=== PATIENT | female | born 1960 | race Caucasian/White ===

== ENCOUNTER 2018-10-10 08:47 | Emergency (ER) | payer SELFPAY ==
[~2018-10-10] VITALS: Ht 160 cm; Wt 90.9 kg
[2018-10-10 08:48] VITALS: BP 138/85
[2018-10-10] MEDS ORDERED: ADVI200C5 PO (08:53)
[2018-10-10] MEDS ORDERED: CLEO150C PO (09:16)
== END 2018-10-10 09:19 | disposition home or self-care (01) ==
LOC: M ED 08:47
DX: K04.7 Periapical abscess without sinus (principal); Z88.0 Allergy status to penicillin

== ENCOUNTER → 2019-04-02 | Outpatient (REF) | payer MEDICAID ==
[~2019-04-02] MED LIST: ADVI200C5 PO; CLEO150C PO
[2019-04-02 13:22] LABS: INR 1.05; PROTHROMBIN TIME 13.4 SECONDS (11.8-14.0)
[2019-04-02 13:23] LABS: PARTIAL THROMBOPLASTIN TIME 36.8 SECONDS (25.0-38.4)
[2019-04-02 14:50] LABS: HEMATOCRIT 47.1 % (36.0-47.0); HEMOGLOBIN 15.6 g/dl (12.0-15.5); MEAN CORPUSCULAR HEMOGLOBIN 33.2 pg (27.0-33.0); MEAN CORPUSCULAR HGB CONC 33.1 g/dl (32.0-36.5); MEAN CORPUSCULAR VOLUME 100.2 fl (80.0-96.0); PLATELET COUNT, AUTOMATED 240 10^3/uL (150-450); WHITE BLOOD COUNT 9.5 10^3/uL (4.0-10.0)
[2019-04-02 15:04] LABS: ALBUMIN 4.2 GM/DL (3.2-5.2); ALT/SGPT 23 U/L (12-78); BILIRUBIN,TOTAL 0.4 MG/DL (0.2-1.0); BLOOD UREA NITROGEN 17 MG/DL (7-18); CALCIUM LEVEL 9.3 MG/DL (8.5-10.1); CARBON DIOXIDE LEVEL 25 MEQ/L (21-32); CHLORIDE LEVEL 108 MEQ/L (98-107); CREATININE FOR GFR 0.97 MG/DL (0.55-1.30); GLOMERULAR FILTRATION RATE > 60.0 (>51); GLUCOSE, FASTING 87 MG/DL (70-100); SODIUM LEVEL 142 MEQ/L (136-145); TOTAL PROTEIN 7.3 GM/DL (6.4-8.2)
[2019-04-02 16:05] LABS: HEMOGLOBIN A1c 5.6 %
== END ==
LOC: M SFHCPLAZ 09:18
PROVIDERS: ATTEND Family Medicine
DX: R73.03 Prediabetes (principal); D50.9 Iron deficiency anemia, unspecified; R23.8 Other skin changes

== ENCOUNTER → 2019-04-09 | Outpatient (REF) | payer MEDICAID ==
[2019-04-09 14:06] LABS: CHOLESTEROL RISK RATIO 4.617 (<5); FREE T4 1.03 NG/DL (0.76-1.46); THYROID STIMULATING HORMONE 2.6 uIU/ML (0.358-3.740)
== END ==
LOC: M SFHCPLAZ 10:21
PROVIDERS: ATTEND Family Medicine
DX: Z13.220 Encounter for screening for lipoid disorders (principal); Z83.49 Family history of other endocrine, nutritional and metabolic diseases

== ENCOUNTER → 2019-07-29 | Outpatient (CLI) | payer OTHER ==
--- NOTE | 2019-07-29 13:56 | REP ---
CT CHEST WITHOUT CONTRAST: Low-dose screening exam. HISTORY: Personal history of nicotine dependence. No comparison imaging. CT FINDINGS: There is a 4 mm right upper lobe nodule on page 17 of 83 in series 201 of today's study. There are several tiny 2-3 mm nodules noted in the right middle lobe and right upper lobe and left lower lobe. No larger pulmonary nodule is appreciated. Study is otherwise unremarkable. Minimal vascular calcification is noted. IMPRESSION: Lung RADS 1 negative exam. Repeat screening chest CT study recommended in 1 year. Electronically Signed by Girma Jaime MD 07/29/2019 05:18 P
== END ==
LOC: M RAD 10:21
PROVIDERS: ATTEND Family Medicine
DX: Z87.891 Personal history of nicotine dependence (principal); Z12.2 Encounter for screening for malignant neoplasm of respiratory organs

== ENCOUNTER 2019-08-11 07:40 | Day surgery (SDC) | payer OTHER ==
[~2019-08-11] VITALS: Ht 157.5 cm; Wt 98.0 kg
[~2019-08-11 07:40] MED LIST changes: +CYCL10TA PO; +GABA-845 PO; +IBUP80TA PO; +MELO15TA28 PO; +NS 1,000 ML IV ONE
[2019-08-11] MEDS ORDERED: PROPOFOL 200 MG/20 ML VIAL As Ordered ONE ×3 (08:05→08:48)
[2019-08-11] MEDS ORDERED: LIDOCAINE 2% INJ 100 MG/5 ML SDV (FOR ANES.) As Ordered ONE (08:07)
--- NOTE | 2019-08-11 09:05 | ROOR ---
Patient Name: Bronwyn Contreras Procedure Date: 08/11/2019 8:24 AM Date of : 1960 Age: 58 Room: [facility] Gender: Female Note Status: Finalized Procedure: Colonoscopy Indications: Screening for colorectal malignant neoplasm Providers: Josiah Duncan Jr, MD Referring MD: [facility] MANUELHessel Requesting Provider: Medicines: Propofol per Anesthesia Complications: No immediate complications. Procedure: Pre-Anesthesia Assessment: - Prior to the procedure, a History and Physical was performed, and patient medications and allergies were reviewed. The patient is competent. The risks and benefits of the procedure and the sedation options and risks were discussed with the patient. All questions were answered and informed consent was obtained. Patient identification and proposed procedure were verified by the physician and the nurse in the pre-procedure area and in the procedure room. Mental Status Examination: alert and oriented. Airway Examination: normal oropharyngeal airway and neck mobility. Respiratory Examination: clear to auscultation. CV Examination: normal. ASA Grade Assessment: II - A patient with mild systemic disease. After reviewing the risks and benefits, the patient was deemed in satisfactory condition to undergo the procedure. The anesthesia plan was to use moderate sedation / analgesia (conscious sedation). Immediately prior to administration of medications, the patient was re-assessed for adequacy to receive sedatives. The heart rate, respiratory rate, oxygen saturations, blood pressure, adequacy of pulmonary ventilation, and response to care were monitored throughout the procedure. The physical status of the patient was re-assessed after the procedure. The Colonoscope was introduced through the anus and advanced to the cecum, identified by appendiceal orifice and ileocecal valve. The colonoscopy was performed with moderate difficulty due to multiple diverticula in the colon. The quality of the bowel preparation was adequate. Findings: The rectum, recto-sigmoid colon, cecum, appendiceal orifice and ileocecal valve appeared normal. A medium polyp was found in the cecum. The polyp was hyperplastic. Biopsies were taken with a cold forceps for histology. Coagulation for destruction of remaining portion of lesion using bipolar probe was successful. Many small and large-mouthed diverticula were found in the sigmoid colon. A medium polyp was found in the sigmoid colon. The polyp was hyperplastic. Biopsies were taken with a cold forceps for histology. To close a defect after mucosal resection, one hemostatic clip was successfully placed. There was no bleeding at the end of the procedure. A small polyp was found in the transverse colon. The polyp was removed with a jumbo cold forceps. Resection and retrieval were complete. Impression: - The rectum, recto-sigmoid colon, cecum, appendiceal orifice and ileocecal valve are normal. - One medium polyp in the cecum. Biopsied. Treated with bipolar cautery. - Diverticulosis in the sigmoid colon. - One medium polyp in the sigmoid colon. Biopsied. Clip was placed. - One small polyp in the transverse colon, removed with a jumbo cold forceps. Resected and retrieved. Recommendation: - Discharge patient to home (ambulatory). - Repeat colonoscopy in 5-10 years for surveillance based on pathology results. Josiah Duncan MD Josiah Duncan Jr, MD 08/11/2019 9:04:38 AM Electronically signed by Josiah Duncan Jr, MD Number of Addenda: 0 Note Initiated On: 08/11/2019 8:24 AM Estimated Blood Loss: Estimated blood loss: none.
[2019-08-11 09:38] VITALS: BP 112/80
== END 2019-08-11 09:40 | disposition home or self-care (01) ==
LOC: M OPP 07:40
PROVIDERS: ATTEND Surgery
DX: Z12.11 Encounter for screening for malignant neoplasm of colon (principal); K63.5 Polyp of colon; F17.210 Nicotine dependence, cigarettes, uncomplicated; Z79.899 Other long term (current) drug therapy; Z88.0 Allergy status to penicillin; Z88.1 Allergy status to other antibiotic agents; Z88.5 Allergy status to narcotic agent

== ENCOUNTER → 2019-09-11 | Outpatient (CLI) | payer OTHER ==
[~2019-09-11] MED LIST changes: -NS 1,000 ML IV ONE
--- NOTE | 2019-09-12 03:39 | REP ---
Clinical: Pelvic pain. Technique: Transabdominal pelvic ultrasound followed by transvaginal examination for better evaluation of the endometrium and adnexa. Findings: The bladder is collapsed. Transvaginal examination best demonstrates heterogeneous anteverted uterus measuring 8.8 x 4.0 x 4.8 cm. Endometrial complex measures up to 6 mm thickness without discrete uterine or endometrial abnormality identified. Bilateral ovaries are not visualized. No pelvic fluid or adnexal mass lesion. Impression: Heterogeneous uterus. Minimally thickened endometrial complex. No discrete abnormality identified.
== END ==
LOC: M WHC 09:28
PROVIDERS: ATTEND Nurse Practitioner Family
DX: R10.2 Pelvic and perineal pain (principal)

== ENCOUNTER → 2019-10-01 | Outpatient (CLI) | payer OTHER ==
--- NOTE | 2019-10-01 15:49 | REPMRS ---
Patient History The patient states she had a clinical breast exam in June 2019. Patient is postmenopausal. Family history of breast cancer in maternal grandmother, breast cancer in maternal aunt. Digital Woman Screen Mammo: October 01, 2019 - Exam #: [id number] Bilateral CC and MLO view(s) were taken. Technologist: Sherrie Brody, Technologist No prior studies available for comparison. FINDINGS: There are scattered fibroglandular densities. There is no evidence of dominant mass, architectural distortion, or grouped microcalcification typical of malignancy. 3-D tomosynthesis shows no additional findings. Assessment: BI-RADS/ACR category 1 mammogram. Negative Mammogram. Recommendation Routine screening mammogram of both breasts in 1 year (for women over age 40). This patient's Lifetime Breast Cancer RIsk is estimated at 14.0 %. This mammogram was interpreted with the aid of an FDA-approved computer-aided dectection system. Electronically Signed By: Trevon Jaime MD 10/01/19 [id number]
== END ==
LOC: M WHC 13:56
PROVIDERS: ATTEND Family Medicine
DX: Z12.31 Encounter for screening mammogram for malignant neoplasm of breast (principal)

== ENCOUNTER → 2020-01-23 | Outpatient (CLI) | payer OTHER ==
[~2020-01-23] MED LIST changes: +CYCL-707 PO; -CYCL10TA PO; +GABA600T4 PO; +PAME10CA PO
--- NOTE | 2020-01-23 17:01 | REPPI ---
REASON FOR EXAM: Knee pain. Only four views were obtained. The lack of a sunrise view is unknown to me. This examination is incomplete due to the lack of a sunrise view. Four views of the left knee excluding a sunrise view shows tricompartmental marginal osteophytosis, which is mild. The compartments are symmetric and well maintained. There is no acute fracture, dislocation, or subluxation. IMPRESSION: Findings and exam limitations as described above. I would suggest bringing the patient back and obtaining a sunrise view. Electronically Signed by Franklin Gomez DO 01/23/2020 05:13 P
== END ==
LOC: M PLALAB 10:52
PROVIDERS: ATTEND Family Medicine
DX: M79.89 Other specified soft tissue disorders (principal)

== ENCOUNTER → 2020-01-23 | Outpatient (REF) | payer OTHER ==
[2020-01-23 14:27] LABS: BLOOD UREA NITROGEN 10 MG/DL (7-18); CALCIUM LEVEL 9.2 MG/DL (8.5-10.1); CARBON DIOXIDE LEVEL 27 MEQ/L (21-32); CHLORIDE LEVEL 108 MEQ/L (98-107); CREATININE FOR GFR 0.87 MG/DL (0.55-1.30); GLOMERULAR FILTRATION RATE > 60.0 (>51); GLUCOSE, FASTING 91 MG/DL (70-100); NT-PRO BNP 45 PG/ML (<125); POTASSIUM SERUM 4.5 MEQ/L (3.5-5.1); SODIUM LEVEL 140 MEQ/L (136-145)
== END ==
LOC: M SFHCPLAZ 10:43
PROVIDERS: ATTEND Family Medicine
DX: M79.89 Other specified soft tissue disorders (principal)

== ENCOUNTER → 2020-03-04 | Outpatient (CLI) | payer OTHER, MEDICAID ==
[~2020-03-04] MED LIST changes: +CYCL5TAB PO; +TYLETAB14 PO
== END ==
LOC: M LABSMTC 11:31
PROVIDERS: ATTEND Anesthesiology
DX: Z01.818 Encounter for other preprocedural examination (principal); Z11.59 Encounter for screening for other viral diseases
CPT/HCPCS: C9803; U0002

== ENCOUNTER 2020-03-08 07:29 | Day surgery (SDC) | payer OTHER ==
[~2020-03-08] VITALS: Ht 160 cm; Wt 102.1 kg
[~2020-03-08 07:29] MED LIST changes: -CYCL5TAB PO; +LR 1,000 ML IV ONE; -TYLETAB14 PO
[2020-03-08 07:53] LABS: HEMATOCRIT 44.9 % (36.0-47.0); HEMOGLOBIN 15.4 g/dl (12.0-15.5); MEAN CORPUSCULAR HEMOGLOBIN 35.6 pg (27.0-33.0); MEAN CORPUSCULAR HGB CONC 34.3 g/dl (32.0-36.5); MEAN CORPUSCULAR VOLUME 103.7 fl (80.0-96.0); PLATELET COUNT, AUTOMATED 252 10^3/uL (150-450); RED BLOOD COUNT 4.33 10^6/uL (4.00-5.40); WHITE BLOOD COUNT 9.3 10^3/uL (4.0-10.0)
[2020-03-08] MEDS ORDERED: CYCL5TAB PO (07:58)
[2020-03-08] MEDS ORDERED: TYLETAB14 PO (07:58)
[2020-03-08] MEDS ORDERED: GABA-845 PO (07:58)
[2020-03-08] MEDS ORDERED: LIDOCAINE 2% 100MG/5ML SDV (FOR ANES.) As Ordered ONE (08:04)
[2020-03-08] MEDS ORDERED: propofoL 200 MG/20 ML VIAL As Ordered ONE (08:04)
[2020-03-08] MEDS ORDERED: dexameTHASONE 4 MG/ML 1ML VIAL (J1100 PER 1MG) As Ordered ONE (08:04)
[2020-03-08] MEDS ORDERED: KETOROLAC 60MG 2ML VIAL As Ordered ONE (08:04)
[2020-03-08] MEDS ORDERED: ONDANSETRON 4MG/2ML VIAL As Ordered ONE (08:04)
[2020-03-08] MEDS ORDERED: fentaNYL 100 MCG/2 ML INJECTION (J3010) As Ordered ONE (08:05)
[2020-03-08] MEDS ORDERED: MIDAZOLAM INJ 2MG/2ML VIAL (J2250 PER 1MG) As Ordered ONE (08:05)
[2020-03-08] MEDS ORDERED: LIDOCAINE 1% SDV 30ML VIAL As Ordered ONE (08:26)
[2020-03-08] MEDS ORDERED: METOCLOPRAMIDE INJ 10MG/2ML VIAL (J2765 PER 1) As Ordered ONE (09:02)
--- NOTE | 2020-03-08 09:31 | ROOPDOC ---
[facility] Report Of Operation Report of Operation DATE OF PROCEDURE: 03/08/20 PREPROCEDURE DIAGNOSES: Vaginal wall cysts. POSTPROCEDURE DIAGNOSES: Vaginal wall cyst. PROCEDURE:. Exam under anesthesia and removal of vaginal cyst. SURGEON: Mami Desai MD METAPHYSICIAN:. None ANESTHESIA: Laryngeal mask airway. ESTIMATED BLOOD LOSS: Approximately 5 mL mL. COMPLICATIONS: None. SPECIMEN: Vaginal cyst DESCRIPTION OF PROCEDURE: After informed consent was obtained and written consent was reviewed, the patient brought to the operating room where she was placed under general anesthesia. The patient was then placed in lithotomy position, was prepped and draped in normal sterile fashion. A timeout was then performed identifying the patient, procedure be performed as well as drug allergies. There was approximately 3 cm broad base vaginal cysts at the introit us. This area was infused with 1% lidocaine. The cyst was excised using a scalpel. The area was then closed with 3-0 Vicryl. Surgical sites were hemostatic. The patient was then taken out of lithotomy position, was awakened general anesthesia and taken recovery in stable condition. Counts correct. MAMI DESAI MD. Mar 08, 2020 09:31
[2020-03-08] MEDS ORDERED: fentaNYL 100 MCG/2 ML INJECTION (J3010) IV PRN (09:45)
[2020-03-08] MEDS ORDERED: HYDROMORPHONE HCL 0.5 MG/ 0.5 ML SYRINGE (J1170 PER 1) IV PRN (09:45)
[2020-03-08] MEDS ORDERED: ONDANSETRON 4MG/2ML VIAL IV PRN (09:45)
[2020-03-08] MEDS ORDERED: LR 1,000 ML IV SCH (09:45)
[2020-03-08] MEDS ORDERED: oxyCODONE 5MG TAB PO PRN (09:45)
[2020-03-08 10:10] VITALS: BP 135/90
== END 2020-03-08 10:40 | disposition home or self-care (01) ==
LOC: M SDC 07:29
PROVIDERS: ATTEND Obstetrics & Gynecology
DX: N89.8 Other specified noninflammatory disorders of vagina (principal); K21.9 Gastro-esophageal reflux disease without esophagitis; J44.9 Chronic obstructive pulmonary disease, unspecified; F41.9 Anxiety disorder, unspecified; Z79.899 Other long term (current) drug therapy; Z88.5 Allergy status to narcotic agent; Z91.013 Allergy to seafood; Z88.8 Allergy status to other drugs, medicaments and biological substances
CPT/HCPCS: 36415; 57135; 85027; 86850; 86900; 86901; 88305; J1100; J1885; J2250; J2405; J2765; J3010

== ENCOUNTER → 2020-09-23 | Outpatient (CLI) | payer OTHER ==
[~2020-09-23] MED LIST changes: +CYCL5TAB PO; +DOCU100C17 PO; -LR 1,000 ML IV ONE; +MM S100C PO; +TYLETAB14 PO
[2020-09-23 14:30] LABS: BASO % 0.3 % (0.0-1.0); EOS # 0.1 10^3/uL (0.0-0.5); HEMOGLOBIN 14.3 g/dl (12.0-15.5); LYMPH # 3.3 10^3/uL (1.5-5.0); LYMPH % 32.9 % (24.0-44.0); MEAN CORPUSCULAR HEMOGLOBIN 34.4 pg (27.0-33.0); MONO # 0.7 10^3/uL (0.0-0.8); MONO % 6.7 % (0.0-5.0); NEUTROPHILS # 5.8 10^3/uL (1.5-8.5); NEUTROPHILS % 58.8 % (36.0-66.0); PLATELET COUNT, AUTOMATED 239 10^3/uL (150-450); RED BLOOD COUNT 4.16 10^6/uL (4.00-5.40); WHITE BLOOD COUNT 9.9 10^3/uL (4.0-10.0)
[2020-09-23 14:40] LABS: INR 0.94; PROTHROMBIN TIME 12.8 SECONDS (12.5-14.3)
[2020-09-23 15:02] LABS: ALBUMIN 4.2 GM/DL (3.2-5.2); ALT/SGPT 29 U/L (12-78); BILIRUBIN,TOTAL 0.3 MG/DL (0.2-1.0); BLOOD UREA NITROGEN 17 MG/DL (7-18); CALCIUM LEVEL 9.7 MG/DL (8.5-10.1); CARBON DIOXIDE LEVEL 28 MEQ/L (21-32); CHLORIDE LEVEL 106 MEQ/L (98-107); CREATININE FOR GFR 0.86 MG/DL (0.55-1.30); GLOMERULAR FILTRATION RATE > 60.0 (>51); GLUCOSE, FASTING 91 MG/DL (70-100); POTASSIUM SERUM 4.6 MEQ/L (3.5-5.1); SODIUM LEVEL 141 MEQ/L (136-145)
[2020-09-23 15:03] LABS: ERYTHROCYTE SEDIMENTATION RATE 21 mm/hr (0-30)
--- NOTE | 2020-09-24 03:10 | REP ---
INDICATION: RT HIP OSTEOARTHRITIS LAB 1ST EKG 2ND XRAY 3RD COMPARISON: None. TECHNIQUE: PA and lateral. FINDINGS: The mediastinum and cardiac silhouette are normal. The lung richard are clear and without acute consolidation, effusion, or pneumothorax. The skeletal structures are intact and normal. IMPRESSION: No acute cardiopulmonary process. <Electronically signed by Ovidio Benson > 09/24/20 [id number]
--- NOTE | 2020-09-24 12:11 | ECGEPIP ---
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 No prior ECG available for comparison at the time of interpretation. Electronically Signed on 09-24-2020 12:11:33 EST by Ari Lange
== END ==
LOC: M LAB 13:32
PROVIDERS: ATTEND Orthopaedic Surgery
DX: Z01.818 Encounter for other preprocedural examination (principal); M16.11 Unilateral primary osteoarthritis, right hip; R94.31 Abnormal electrocardiogram [ECG] [EKG]

== ENCOUNTER → 2020-09-26 | Outpatient (CLI) | payer OTHER | LOC: M LABSMTC 10:03 | PROVIDERS: ATTEND Anesthesiology | DX: Z01.812 Encounter for preprocedural laboratory examination (principal); Z20.822 Contact with and (suspected) exposure to COVID-19 ==

== ENCOUNTER 2020-10-01 06:19 | Inpatient (IN) | payer OTHER ==
--- NOTE | 2020-09-27 16:27 | HPE ---
HISTORY AND PHYSICAL DATE OF ANTICIPATED ADMISSION: 10/01/2020 ATTENDING PHYSICIAN: Dr. Sumit Avendano CHIEF COMPLAINT: Right hip pain and stiffness. HISTORY OF PRESENT ILLNESS: The patient is a 59-year-old female with progressively worsening right hip pain and stiffness. She failed to improve with conservative measures. She continues to have symptoms with weightbearing activities and activities of daily living. She has consented for an elective right total hip arthroplasty with Dr. Avendano for her continued symptoms. Medical optimization pending with her primary clinical care leader, Dr. Radford. CURRENT MEDICATIONS: 1. Acetaminophen with Codeine #4, 300/60 mg one tablet every 4 hours as needed for pain. 2. Gabapentin 600 mg three times a day. 3. [id number] mg daily. 4. Flexeril 5 mg daily. 5. Docusate 100 mg daily. MEDICATION ALLERGIES: No known drug allergies. CHRONIC MEDICAL CONDITIONS: Chronic pain. PAST SURGICAL HISTORY: section, tubal ligation, colonoscopy. SOCIAL HISTORY: The patient is a current smoker and smokes half a pack a day. She occasionally consumes alcohol. REVIEW OF SYSTEMS: The patient denies fever, chills, nausea, vomiting or diarrhea. She denies chest pain, shortness of breath, lightheadedness, dizziness, or headaches. She denies any recent upper respiratory or urinary tract infection symptoms. She denies any abdominal pain. She does continue to have right hip pain with weightbearing activities and activities of daily living. PHYSICAL EXAMINATION: GENERAL: Well nourished, well developed female in no apparent distress. She is alert and oriented and cooperative. Mood and affect are appropriate. VITAL SIGNS: Height 61.75 inches. Weight 231 pounds. Temperature 96.8, blood pressure 136/94, respirations 19, heart rate 89. NECK: Supple without lymphadenopathy. HEART: Regular rate and rhythm. LUNGS: Clear to auscultation bilaterally. Breathing is regular and nonlabored. ABDOMEN: Soft and nontender. Bowel sounds are present. MUSCULOSKELETAL: Right hip exhibits no gross abnormalities. There is tenderness to palpation about the groin. She has difficulties with any hip flexion. She does have fairly decent internal and external rotation but it does elicit quite a bit of pain. Strength in the right lower extremity is 4/5 secondary to pain. Calf is soft and nontender without evidence of DVT. She does have chronic numbness and tingling in that right lower extremity. Extremity is warm and well perfused. LABORATORY DATA: Chest x-ray: No acute cardiopulmonary process. Comprehensive metabolic profile: Fasting glucose 91, BUN 17, creatinine 0.86, GFR greater than 60, sodium 141, potassium 4.6, chloride 106, CO2 28, anion gap decreased at 7, calcium 9.7, AST 11, ALT 29, alkaline phosphatase 74, total bilirubin 0.3, total protein 7.0, albumin 4.2, albumin globulin ratio 1.5. Complete blood count: ESR 21, WBC 9.9, RBCs 4.16, hemoglobin 14.3, hematocrit 42, platelets 239. Prothrombin time 12.8, INR 0.94. IMPRESSION: Right hip osteoarthritis with x-rays notable for end stage degenerative changes. PLAN: The patient has consented for an elective right total hip arthroplasty with Dr. Avendano for her continued symptoms. Medical optimization pending with her primary clinical care leader Dr. Radford. The patient has taken her COVID test. She is using her Bactroban and Hibiclens as directed. She will follow her primary clinical care leader's recommendations on how to take her daily medications. She will be NPO after midnight the night prior to surgery and was instructed to take a medication the morning of with a small sip of water.
[~2020-10-01] VITALS: Ht 160 cm; Wt 103.4 kg
[2020-10-01] VITALS (8 sets, daily range): BP systolic 114–133; BP diastolic 67–76; O2SAT 100
--- OUTSIDE RECORDS SUMMARY | 2020-10-01 06:27 | CCD ---
Author Author [facility] Organization [facility] Address Unknown Phone Unavailable Care Team Providers Care Minilab Operator Name Role Phone Jamie Chung Unavailable PROBLEMS Type Condition ICD9-CM Code [id number] Code Onset Dates Condition S tatus W/U Status Risk SNOMED Code Notes Problem Family history of breast cancer Z80.3 Active confi rmed 316860900 Problem Primary osteoarthritis of right hip M16.11 Acti ve confirmed [id number] Problem Lumbago with sciatica, right side M54.41 Active confirmed 908953928 Problem Other chronic pain G89.29 Active confirmed 8 [id number] Problem Situational mixed anxiety and depressive disorder F43.23 Active confirmed 205900890 Problem Vaginal cyst N89.8 Active confirmed 0618827 5 ALLERGIES Allergen (clinical drug ingredient) Drug/Non Drug Allergy do cumented on EMR Reaction Allergy Type Onset Date Status codeine Codeine Sulfate(NDC Code:[address]-52) Nausea/Vomiting Dr ug Allergy Active aspirin Aspirin(ND Code:[address]-22) belly pain Drug Allergy Active ENCOUNTERS from 1960 to 2020-09-27 Encounter Location Date Provider Diagnosis [address] [id number] 08 Sep, 2020 Jamie Chung IMMUNIZATIONS Vaccine Route Administration Date Status Influenza (18 yrs & older) Flublok IM Intramuscular Jun 24, 2019 Administered Pneumococcal Adult 0.5mL (Pneumovax 23) IM Intramuscular Jun 24, 2019 Administered TDAP 0.5mL (Boostrix) IM Intramuscular Jun 24, 2019 Administe red SOCIAL HISTORY Tobacco Use: Social History Observation Description Date Details (start date - stop date) Current Smoker Sex Assigned At : Social History Observation Description Sex Assigned At Unknown Education: Question Answer Notes Level of Education: High School Audit Question Answer Notes Total Score: 1 Interpretation: Alcohol Education Language: Question Answer Notes Languages spoken: Upper Sorbian Anglican: Question Answer Notes Anglican 33 None Domestic Violence: Question Answer Notes Status: Sexual Hx: Question Answer Notes Had sex in the last 12 months (vaginal, oral, or anal)? No LMP: menopausal Have you ever had an STD? No Drug and Alcohol Question Answer Notes Total Score: 0 Interpretation: No problems reported Alcohol Screening: Question Answer Notes Did you have a drink containing alcohol in the past year? Ye s Points 1 Interpretation Negative How often did you have six or more drinks on one occas ion in the past year? Never (0 points) How many drinks did you have on a typica l day when you were drinking in the past year? 1 or 2 (0 points) How often did you have a drink containing alcohol in t he past year? Monthly or less (1 point) BMI Care Goal Follow-Up Question Answer Notes Above Normal BMI Follow-Up Giving encouragement to exercise Tobacco Use: Question Answer Notes Are you a: current smoker Patient counseled on the dangers of tobacco use and urged to quit: 09/03/2019 How many cigarettes a day do you smoke? 6-10 Are you interested in quitting? Not ready to quit Counseled the patient on smoking effects, education provided 09/03/2019 REASON FOR REFERRAL No Information VITAL SIGNS No information MEDICATIONS Medication SIG (Take, Route, Frequency, Duration) Notes Start Da te End Date Status Cyclobenzaprine HCl 5 MG 1 tablet as needed Orally th ree times daily as needed for 30 Active Tylenol with Codeine #4 A ctive Meloxicam 15 MG 1 tablet Orally Once a day for 30 Active Gabapentin 600 MG 1 capsule Orally three times daily for 30 days May, Active Ibuprofen 800 MG 1 tablet with food or milk a s needed Orally twice daily as needed for 28 day(s) Mar, Active Tylenol Arthritis Pain Ac tive PROCEDURES No Information RESULTS No Results REASON FOR VISIT pre-op MEDICAL (GENERAL) HISTORY Type Description Date Medical History ho of TOM Medical History IFG Medical History Myriad myrisk genetic test neg TC score 14.1% Surgical History 1989 Surgical History Tubal ligation 1990 Surgical History colonoscopy 07/2019 Hospitalization History childbirth Hospitalization History Surgical related Goals Section No Information Health Concerns No Information MEDICAL EQUIPMENT No Information MENTAL STATUS No Information FUNCTIONAL STATUS No Information ASSESSMENTS No Information PLAN OF TREATMENT Medication Medication Name Sig Start Date Stop Date Cyclobenzaprine HCl 5 MG 1 tablet as needed Orally th ree times daily as needed for 30 Next Appt Details Provider Name:Jamie Chung, 2020-09-28 01 :45:00 PM, [facility], [place], [address], Insurance Providers Payer Name Payer Address Payer Phone Insured Name Patient Relati onship to Insured Coverage Start Date Coverage End Date [facility] [address] [facility] [id number] TOYA CONTRERAS self
--- OUTSIDE RECORDS SUMMARY | 2020-10-01 06:28 | CCD | Continuity of Care Document ---
Author Author [facility] Organization Unknown Address [address] [address] Phone [phone] Care Team Providers Care Harvesting Supervisor Name Role Phone Jamie Chung [phone] Problems Description No Information Available Social History Type Date Description Comments Sex Unknown ETOH Use Occasionally consumes alcohol Tobacco Use Start: Unknown Patient is a current smoker, smo kes every day 1/2 pack Smoking Status Reviewed: 04/20/20 Patient is a current smoker, smokes every day 1/2 pack Allergies, Adverse Reactions, Alerts Active Allergies Reaction Severity Comments Date NKDA 01/07/2020 Inactive Allergies Codeine 07/03/2019 Medications Active Medications SIG Qnty Indications Ordering Provide r Date Dok 100mg Capsules take one capsule by mouth once daily or twice daily for constipation 60caps Arsalan Duron MD 06/10/2020 Acetaminophen-Codeine #4 300-60mg Tablets 1 tab every 4 hours prn/pain 180tabs M16.11 Arsalan Duron MD 04/20/2020 Gabapentin 600mg Tablets 1 by mouth three times a day 90tabs Arsalan Duron MD 11/18/2019 Meloxicam 15mg Tablets 1 by mouth every day with food or milk 30tabs Arsalan Duron MD 2018 Cyclobenzaprine HCL 5mg Tablets one half to one tablet by mouth three times a day as needed spasm 90tabs Arsalan Duron MD History Medications Docusate Sodium 100mg Capsules 1 cap by mouth daily or twice a day for constipation 60caps Terrancea jeffrey Duron MD 04/20/2020 - 06/10/2020 Immunizations Description No Information Available Vital Signs Date Vital Result Comment 07/20/2020 4:09pm Body Temperature 97.5 F Height 63 inches 5'3" Weight 220.00 lb BMI (Body Mass Index) 39.0 kg/m2 06/22/2020 11:24am Body Temperature 97.1 F Height 63 inches 5'3" Weight 232.00 lb BMI (Body Mass Index) 41.1 kg/m2 Results Test Acquired Date Facility Test Result H/L Range Note Xray 09/10/2020 [facility] nter (315)- - Chest x-ray <pending> Order 09/10/2020 [facility] nter EKG <pending> Procedures Date Code Description Status 07/20/2020 06622 X-Ray Pelvis Ap Only 1-2 Views C ompleted 06/22/2020 48913 X-Ray Hip Unilateral With Pelvis 2-3 Views Completed Medical Devices Description No Information Available Encounters Type Date Location Provider Dx Diagnosis Office Visit 07/20/2020 4:00p Camdendamari Avendano MD M16.11 Unilateral primary osteoarthritis, right hip Office Visit 06/22/2020 11:15a ASHANTI Mauricio M47.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 w/o myelopathy or radiculopathy, lumbosacr region M51.37 Other intervertebral disc de generation, lumbosacral region M51.27 Other intervertebral disc di splacement, lumbosacral region M48.061 Spinal stenosis, lumbar juan j on without neurogenic virgil M43.16 Spondylolisthesis, lumbar re gion M41.26 Other idiopathic scoliosis, lumbar region M16.0 Bilateral primary osteoarthr itis of hip Office Visit 04/20/2020 2:45p [place] Tay M47.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 w/o myelopathy or radiculopathy, lumbosacr region M51.37 Other intervertebral disc de generation, lumbosacral region M51.27 Other intervertebral disc di splacement, lumbosacral region M48.061 Spinal stenosis, lumbar juan j on without neurogenic virgil M43.16 Spondylolisthesis, lumbar re gion M41.26 Other idiopathic scoliosis, lumbar region M16.0 Bilateral primary osteoarthr itis of hip Assessments Date Code Description Provider 07/20/2020 M16.11 Unilateral primary osteoarthriti s, right hip Sumit Avendano MD 06/22/2020 M47.817 Spondylosis without myelopathy or radiculopathy, lumbosacral region Casayumiko Christinana, PA 06/22/2020 M51.37 Other intervertebral disc degene ration, lumbosacral region Casayumiko Christinana, PA 06/22/2020 M51.27 Other intervertebral disc displa cement, lumbosacral region Casayumiko Christinana, PA 06/22/2020 M48.061 Spinal stenosis, lum bar region without neurogenic claudication Casayumiko Christinana, PA 06/22/2020 M43.16 Spondylolisthesis, lumbar region Casayumiko Christinana, PA 06/22/2020 M41.26 Other idiopathic scoliosis, lumb ar region Casa Christinana, PA 06/22/2020 M16.0 Bilateral primary osteoarthritis of hip Casayumiko Christinarubi PA 04/20/2020 M47.817 Spondylosis without myelopathy or radiculopathy, lumbosacral region Casayumiko Christinana, PA 04/20/2020 M51.37 Other intervertebral disc degene ration, lumbosacral region Casayumiko Christinana, PA 04/20/2020 M51.27 Other intervertebral disc displa cement, lumbosacral region Casa Christinana, PA 04/20/2020 M48.061 Spinal stenosis, lum bar region without neurogenic claudication Casayumiko Christinana, PA 04/20/2020 M43.16 Spondylolisthesis, lumbar region Casayumiko Christinana, PA 04/20/2020 M41.26 Other idiopathic scoliosis, lumb ar region Casayumiko Christinana, PA 04/20/2020 M16.0 Bilateral primary osteoarthritis of hip Casa M ASHANTI Garibay Plan of Treatment 07/20/2020 - Sumit Avendano MD* M16.11 Unilateral primary osteoarthritis, right hip* New Orders:* Surgery, Ordered: 07/20/20 * Follow up:* post op Functional Status Description No Information Available Mental Status Description No Information Available Referrals Description No Information Available
--- OUTSIDE RECORDS SUMMARY | 2020-10-01 06:28 | CCD | Continuity of Care Document ---
Author Author Bronwyn WIGGINS MD Organization Unknown Address [address] [place] [address], [address] [place] [address] Phone [phone] Care Team Providers Care Interventional Radiology Tech Name Role Phone Jamie Chung [phone] Problems Description No Information Available Social History [...] Ordering Provide r Date Dok 100mg Capsules Take One Capsule By Mouth Once Daily Or Twice Daily For Constipation 60caps Arsalan Duron MD 06/10/2020 Acetaminophen-Codeine #4 300-60mg Tablets 1 tab every 4 hours prn/pain 180tabs M41.26 Arsalan Duron MD 04/20/2020 Gabapentin 600mg Tablets [...] or twice a day for constipation 60caps Sukumar Duron MD 04/20/2020 - 06/10/2020 Acetaminophen/Codeine Phosphate 300-30mg Tablets take 1-2 tablets by mouth every six hour s as needed for pain max daily dose eight tablets 64tabs Arsalan Duron MD 0 - 04/20/2020 Immunizations Description No Information Available Vital Signs Date Vital Result Comment 07/20/2020 4:09pm Body Temperature 97.5 F Height 63 inches 5'3" Weight 220.00 lb BMI (Body Mass Index) 39.0 kg/m2 06/22/2020 11:24am Body Temperature 97.1 F Height 63 inches 5'3" Weight 232.00 lb BMI (Body Mass Index) 41.1 kg/m2 Results Description No Information Available Procedures Date Code Description Status 07/20/2020 99965 X-Ray Pelvis Ap Only 1-2 Views C ompleted 06/22/2020 60103 X-Ray Hip Unilateral With Pelvis 2-3 Views Completed Medical Devices Description No Information Available Encounters Type Date Location Provider Dx Diagnosis Office Visit 07/20/2020 4:00p [place] Sumit Wiggins MD M47.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 w/o myelopathy or radiculopathy, lumbosacr region M51.37 Other intervertebral disc de generation, lumbosacral region M51.27 Other intervertebral disc di splacement, lumbosacral region M48.061 Spinal stenosis, lumbar juan j on without neurogenic virgil M43.16 Spondylolisthesis, lumbar re gion M41.26 Other idiopathic scoliosis, lumbar region M16.12 Unilateral primary osteoarth ritis, left hip M16.11 Unilateral primary osteoarth ritis, right hip Office Visit 06[place]22[place]2020 11[place] M47.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 w/o myelopathy or radiculopathy, lumbosacr region M51.37 Other intervertebral disc de generation, lumbosacral region M51.27 Other intervertebral disc di splacement, lumbosacral region M48.061 Spinal stenosis, lumbar juan j on without neurogenic virgil M43.16 Spondylolisthesis, lumbar re gion M41.26 Other idiopathic scoliosis, lumbar region M16.0 Bilateral primary osteoarthr itis of hip Office Visit 04/20/2020 2:45p [place] M47.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 w/o myelopathy or radiculopathy, lumbosacr region M51.37 Other intervertebral disc de generation, lumbosacral region M51.27 Other intervertebral disc di splacement, lumbosacral region M48.061 Spinal stenosis, lumbar juan j on without neurogenic virgil M43.16 Spondylolisthesis, lumbar re gion M41.26 Other idiopathic scoliosis, lumbar region M16.0 Bilateral primary osteoarthr itis of hip Assessments Date Code Description Provider 07/20/2020 M47.817 Spondylosis without myelopathy or radiculopathy, lumbosacral region Sumit Wiggins MD 07/20/2020 M51.37 Other intervertebral disc degene ration, lumbosacral region Sumit Wiggins MD 07/20/2020 M51.27 Other intervertebral disc displa cement, lumbosacral region Sumit Wiggins MD 07/20/2020 M48.061 Spinal stenosis, lum bar region without neurogenic claudication Sumit Wiggins MD 07/20/2020 M43.16 Spondylolisthesis, lumbar region Sumit Wiggins MD 07/20/2020 M41.26 Other idiopathic scoliosis, lumb ar region Sumit Wiggins MD 07/20/2020 M16.12 Unilateral primary osteoarthriti s, left hip Sumit Wiggins MD 07/20/2020 M16.11 Unilateral primary osteoarthriti s, right hip Sumit Wiggins MD 06/22/2020 M47.817 Spondylosis without myelopathy or radiculopathy, lumbosacral region ASHANTI Harley 06/22/2020 M51.37 Other intervertebral disc degene ration, lumbosacral region ASHANTI Harley 06/22/2020 M51.27 Other intervertebral disc displa cement, lumbosacral region ASHANTI Harley 06/22/2020 M48.061 Spinal stenosis, lum bar region without neurogenic claudication ASHANTI Harley 06/22/2020 M43.16 Spondylolisthesis, lumbar region ASHANTI Harley 06/22/2020 M41.26 Other idiopathic scoliosis, lumb ar region ASHANTI Harley 06/22/2020 M16.0 Bilateral primary osteoarthritis of hip ASHANTI Harley 04/20/2020 M47.817 Spondylosis without myelopathy or radiculopathy, lumbosacral region ASHANTI Harley 04/20/2020 M51.37 Other intervertebral disc degene ration, lumbosacral region ASHANTI Harley 04/20/2020 M51.27 Other intervertebral disc displa cement, lumbosacral region ASHANTI Harley 04/20/2020 M48.061 Spinal stenosis, lum bar region without neurogenic claudication ASHANTI Harley 04/20/2020 M43.16 Spondylolisthesis, lumbar region ASHANTI Harley 04/20/2020 M41.26 Other idiopathic scoliosis, lumb ar region ASHANTI Harley 04/20/2020 M16.0 Bilateral primary osteoarthritis of hip ASHANTI Harley Plan of Treatment 07/20/2020 - Sumit Wiggins MD* M47.817 Spondylosis without myelopathy or radiculopathy, lumbosacral region * M51.37 Other intervertebral disc degeneration, lumbosacral region * M51.27 Other intervertebral disc displacement, lumbosacral region * M48.061 Spinal stenosis, lumbar region without neurogenic claudication * M43.16 Spondylolisthesis, lumbar region * M41.26 Other idiopathic scoliosis, lumbar region * M16.12 Unilateral primary osteoarthritis, left hip * M16.11 Unilateral primary osteoarthritis, right hip* New Orders:* Surgery, Ordered: 07/20/20 * Follow up:* post op Functional Status Description No Information Available Mental Status Description No Information Available Referrals Description No Information Available
--- OUTSIDE RECORDS SUMMARY | 2020-10-01 06:28 | CCD | Continuity of Care Document ---
Author Author Bronwyn WIGGINS MD Organization Unknown Address [address] [place] [address], [address] [place] [address] Phone [phone] Care Team Providers Care High Wire Artist Name Role Phone Jamie Chung [phone] Problems Description No Information Available Social History [...] SIG Qnty Indications Ordering Provide r Date Mupirocin 2% Ointment apply a pea sized amount to the nasal passages 3 times a day for 5 days prior to surgery 22gm Sumit Wiggins MD 09/20/2020 Hibiclens 4% Liquid use in shower once daily for 5 days before surgery 1units Sumit Wiggins MD 09/20/2020 Dok 100mg Capsules take one capsule by [...] or twice a day for constipation 60caps [address] Rosario Duron MD 04/20/2020 - 06/10/2020 Immunizations Description [...] Date Facility Test Result H/L Range Note Prothrombin Time/Inr 09/23/2020 [facility] entr [address] [place] [address] (315)- - Prothrombin Time 12.8 seconds Normal 12.5-14.3 Inr 0.94 Normal 1 Comprehensive Metabolic Profil 09/23/[address] [address] (315)- - Glucose, Fasting 91 mg/dL Normal 70-100 Blood Urea Nitrogen 17 mg/dL Normal 7-18 Creatinine For GFR 0.86 mg/dL Normal 0.55-1.30 Glomerular Filtration Rate > 60.0 Normal >51 2 Sodium Level 141 mEq/L Normal 136-145 Potassium Serum 4.6 mEq/L Normal 3.5-5.1 Chloride Level 106 mEq/L Normal 98-107 Carbon Dioxide Level 28 mEq/L Normal 21-32 Anion Gap 7 mEq/L Low 8-16 Calcium Level 9.7 mg/dL Normal 8.5-10.1 Ast/Sgot 11 U/L Normal 7-37 Alt/SGPT 29 U/L Normal 12-78 Alkaline Phosphatase 74 U/L Normal 45-117 Bilirubin,Total 0.3 mg/dL Normal 0.2-1.0 Total Protein 7.0 GM/DL Normal 6.4-8.2 Albumin 4.2 GM/DL Normal 3.2-5.2 Albumin/Globulin Ratio 1.5 Normal 1.2-2.2 CBC With Differential 09/23/[address] [address] (315)- - White Blood Count 9.9 10 Normal 4.0-10.0 Red Blood Count 4.16 10 Normal 4.00-5.40 Hemoglobin 14.3 g/dL Normal 12.0-15.5 Hematocrit 42.0 % Normal 36.0-47.0 Mean Corpuscular Volume 101.0 fl High 80.0-96.0 Mean Corpuscular Hemoglobin 34.4 pg High 27.0-33.0 Mean Corpuscular HGB Conc 34.0 g/dL Normal 32.0-36.5 Red Cell Distribution Width 12.2 % Normal 11.5-14.5 Platelet Count, Automated 239 10 Normal 150-450 Neutrophils % 58.8 % Normal 36.0-66.0 Lymph % 32.9 % Normal 24.0-44.0 Yolo % 6.7 % High 0.0-5.0 Eos % 1.0 % Normal 0.0-3.0 Baso % 0.3 % Normal 0.0-1.0 Immature Granulocyte % 0.3 % Normal 0-3.0 Nucleated Red Blood Cell % 0.0 % Normal 0-0 Neutrophils # 5.8 10 Normal 1.5-8.5 Lymph # 3.3 10 Normal 1.5-5.0 Yolo # 0.7 10 Normal 0.0-0.8 Eos # 0.1 10 Normal 0.0-0.5 Baso # 0.0 10 Normal 0.0-0.2 Laboratory test finding 09/23/2020 [facility] [address] [place] [address] (315)- - Erythrocyte Sedimentation Rate 21 mm/hr Normal 0-30 Laboratory test finding 09/10/2020 [facility] [address] [place] [address] (315)- - Erythrocyte Sedimentation Rate <pending> Xray 09/10/2020 [facility] nter (315)- - Chest x-ray <pending> Order 09/10/2020 [facility]ter EKG <pending> 1 THERAPUTIC HUMAN INR VALUES INDICATIONS NORMAL RANGES PROPHYLAXIS/TREATMENT OF: VENOUS THROMBOSIS 2.0-3.0 PULMONARY EMBOLISM 2.0-3.0 PREVENTION OF SYSTEMIC EMBOLISM FROM: TISSUE HEART VALVES 2.0-3.0 ACUTE MYOCARDIAL INFARCTION 2.0-3.0 VALVULAR HEART DISEASE 2.0-3.0 ATRIAL FIBRILLATION 2.0-3.0 MECHANICAL VALVES(HIGH RISK) 2.5-3.5 RECURRENT MYOCARDIAL INFARCTION 2.5-3.5 2 Units are mL/min/1.73 m2 Chronic Kidney Disease Staging per NKF: Stage I & II GFR >=60 Normal to Mildly Decreased Stage III GFR 30-59 Moderately Decreased Stage IV GFR 15-29 Severely Decreased Stage V GFR <15 Very Little GFR Left ESRD GFR <15 on DEMOLITIONIST Procedures Date Code Description Status 07/20/2020 27024 X-Ray Pelvis Ap Only 1-2 Views C ompleted 06/22/2020 69805 X-Ray Hip Unilateral With Pelvis 2-3 Views Completed Medical Devices Description No Information Available Encounters Type Date Location Provider Dx Diagnosis Office Visit 07/20/2020 4:00p [place] Sumit Wiggins MD M16.11 Unilateral primary osteoarthritis, right hip [...] itis of hip Office Visit 04/20/2020 2:45p ASHANTI Mauricio M47.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 w/o myelopathy or [...] Spondylosis without myelopathy or radiculopathy, lumbosacral region Casa Garibay, PA 06/22/2020 M51.37 Other intervertebral disc degene ration, lumbosacral region Casa Christinana, PA 06/22/2020 M51.27 Other intervertebral disc displa cement, lumbosacral region Casa Christinana, PA 06/22/2020 M48.061 Spinal stenosis, lum bar region without neurogenic claudication Casa Christinana, PA 06/22/2020 M43.16 Spondylolisthesis, lumbar region Casa Christinana, PA 06/22/2020 M41.26 Other idiopathic scoliosis, lumb ar region Casa Garibay, PA 06/22/2020 M16.0 Bilateral primary osteoarthritis of hip Casa Garibay, PA 04/20/2020 M47.817 Spondylosis without myelopathy or radiculopathy, lumbosacral region Casa Garibay, PA 04/20/2020 M51.37 Other intervertebral disc degene ration, lumbosacral region Casa Christinana, PA 04/20/2020 M51.27 Other intervertebral disc displa cement, lumbosacral region Casa Christinana, PA 04/20/2020 M48.061 Spinal stenosis, lum bar region without neurogenic claudication Casa Christinana, PA 04/20/2020 M43.16 Spondylolisthesis, lumbar region Casa Garibay, PA 04/20/2020 M41.26 Other idiopathic scoliosis, lumb ar region Casa Garibay, PA 04/20/2020 M16.0 Bilateral primary osteoarthritis of hip Casa M Lani ID Plan of Treatment Future Appointment(s):* 09/27/2020 2:30 pm - Elizabeth Wiggins PA-C at [place] * 10/13/2020 2:45 pm - Sumit Wiggins MD at [place] * 10/01/2020 7:30 am - Domenica Velez PA-C at Surgery [facility] Inpatient * 10/01/2020 7:30 am - Sumit Wiggins MD at Surgery [facility] Inpatient 07/20/2020 - Sumit Wiggins MD* M16.11 Unilateral primary osteoarthritis, right hip* Follow up:* post op Functional Status Description No Information Available Mental Status Description No Information Available Referrals Refer to Reason for Referral Status Appt Date Kathy Mei PA-C SURGERY RT TOTAL HIP ([id number]) RECEIVED WRITTEN AUTH FOR 1 DAY STAY AFTER THAT HOSPITAL MUST CALL TO GET ADDITIONAL TIME TO SURGERY NT Created [address] [facility] [id number] [place] [id number] [phone]
--- OUTSIDE RECORDS SUMMARY | 2020-10-01 06:28 | CCD ---
Author Author [facility] Organization [facility] Address Unknown Phone Unavailable Care Team Providers Care Fabricator Industrial Furnace Name Role Phone Jamie Chung Unavailable PROBLEMS Type Condition ICD9-CM Code USU80-AR Code Onset Dates Condition S tatus SNOMED Code Notes Problem Family history of breast cancer Z80.3 Active 644874670 Problem Primary osteoarthritis of right hip M16.11 Acti ve [id number] Problem Lumbago with sciatica, right side M54.41 Active 266855412 Problem Other chronic pain G89.29 Active 48565043 Problem Situational mixed anxiety and depressive disorder F43.23 Active 373938546 Problem Vaginal cyst N89.8 Active 81707999 ALLERGIES Allergen (clinical drug ingredient) Drug/Non Drug Allergy do cumented on EMR Reaction Allergy Type Onset Date Status codeine Codeine Sulfate(NDC Code:[address]-24) Nausea/Vomiting Dr ug Allergy Active aspirin Aspirin(ND Code:[address]-74) belly pain Drug Allergy Active ENCOUNTERS from 1962 to 2020-08-19 Encounter Location Date Provider Diagnosis [facility] Resident [address] [place] [address] 29 Jul, 2020 Jamie Chung Primary osteoarthritis of ri ght hip M16.11 IMMUNIZATIONS Vaccine Route Administration Date Status Influenza [...] Education Language: Question Answer Notes Languages spoken: Khmer Holiness: Question Answer Notes Holiness 33 None Domestic Violence: Question Answer Notes [...] REASON FOR REFERRAL No Information VITAL SIGNS Weight 224 lbs Jul, Height 63 in Jul, BMI 39.68 kg/m2 Jul, Heart Rate 104 /min Jul, Respiratory Rate 17 /min Jul, Temperature 97.9 degrees Fahrenheit Jul, Oximetry 97 Jul, Blood pressure systolic 126 mm Hg Jul, Blood pressure diastolic 84 mm Hg Jul, MEDICATIONS Medication SIG (Take, Route, Frequency, Duration) Notes Start Da te End Date Status Gabapentin 600 MG 1 capsule Orally three times daily for 30 days May, Active Tylenol with Codeine #4 A ctive Cyclobenzaprine HCl 5 MG 1 tablet as needed Orally th ree times daily as needed for 30 Active Tylenol Arthritis Pain Ac tive Ibuprofen 800 MG 1 tablet with food or milk a s needed Orally twice daily as needed for 28 day(s) Mar, Active Meloxicam 15 MG 1 tablet Orally Once a day for 30 Active PROCEDURES No Information RESULTS No Results REASON FOR VISIT 6 weeks f/u right hip pain MEDICAL (GENERAL) HISTORY Type Description Date Medical History ho of TOM Medical History IFG Medical History 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 Avendano for her R-hip OA, emphasized improving function when taking her narcotics. Patient verbalized understanding and agreement with plan moving forward. She is having difficulty losing weight and is working on it. We discussed food journaling and calorie counting for less than 1000 calorie diet prior to her procedure given that she is unable to sufficiently exercise because of her hip pain. PLAN OF TREATMENT Medication Medication Name Sig Start Date Stop Date Cyclobenzaprine HCl 5 MG 1 tablet as needed Orally th ree times daily as needed for 30 Treatment Notes Assessment Notes Clinical Notes Primary osteoarthritis of right hip Colleen ent awaiting surgery date with Dr. Avendano for her R-hip OA, emphasized improving function when taking her narcotics. Patient verbalized understanding and agreement with plan moving forward. She is having difficulty losing weight and is working on it. We discussed food journaling and calorie counting for less than 1000 calorie diet prior to her procedure given that she is unable to sufficiently exercise because of her hip pain. Next Appt Details 2-3 Months Reason:f/u hip Follow Up:2-3 Monthsf/u hip Insurance Providers Payer Name Payer Address Payer Phone Insured Name Patient Relati onship to Insured Coverage Start Date Coverage End Date [facility] [address] [facility] [id number] TOYA CONTRERAS self
--- OUTSIDE RECORDS SUMMARY | 2020-10-01 06:28 | CCD | Continuity of Care Document ---
Author Author Bronwyn WIGGINS MD Organization Unknown Address [address] [place] [address], [address] [place] [address] Phone [phone] Care Team Providers Care Embedded Software Development Engineer Name Role Phone Jamie Chung [phone] Problems Description No Information Available Social History [...] Available Procedures Date Code Description Status 07/20/2020 70427 X-Ray Pelvis Ap Only 1-2 Views C ompleted 06/22/2020 08798 X-Ray Hip Unilateral With Pelvis 2-3 Views Completed Medical Devices Description No Information Available Encounters Type Date Location Provider Dx Diagnosis Office Visit 07/20/2020 4:00p [place] Wiggins MD M16.11 Unilateral primary osteoarthritis, right [...] without myelopathy or radiculopathy, lumbosacral region Casa Christinana, PA 06/22/2020 M51.37 Other intervertebral disc [...] 06/22/2020 M16.0 Bilateral primary osteoarthritis of hip Casauymiko Christinana, PA 04/20/2020 M47.817 Spondylosis without myelopathy or radiculopathy, lumbosacral region Casayumiko Christinana, PA 04/20/2020 M51.37 Other intervertebral disc degene ration, lumbosacral region Casayumiko Christinana, PA 04/20/2020 M51.27 Other intervertebral disc displa cement, lumbosacral region Casa Christinana, PA 04/20/2020 M48.061 Spinal stenosis, lum bar region without neurogenic claudication Casayumiko Christinana, PA 04/20/2020 M43.16 Spondylolisthesis, lumbar region Casa Christinana, PA 04/20/2020 M41.26 Other idiopathic scoliosis, lumb ar region Casa Christinana, PA 04/20/2020 M16.0 Bilateral primary osteoarthritis of hip Casa M ASHANTI Garibay Plan of Treatment 07/20/2020 - Sumit Wiggins MD* M16.11 Unilateral primary osteoarthritis, right hip* New Orders:* Surgery, Ordered: 07/20/20 * Follow up:* post op Functional Status Description No Information Available Mental Status Description No Information Available Referrals Description No Information Available
--- OUTSIDE RECORDS SUMMARY | 2020-10-01 06:28 | CCD | Continuity of Care Document ---
Author Author Bronwyn RAMOS PALoulouC Organization Unknown Address [address] [address] Phone [phone] Care Team Providers Care Rn Coronary Care Unit Name Role Phone Jamie Chung [phone] Problems Description No Information Available Social History [...] times a day as needed spasm 90tabs Araslan Duron MD History Medications Docusate Sodium 100mg [...] Test Result H/L Range Note Xray 09/10/2020 [facility] nter (315)- - Chest x-ray <pending> Order 09/10/2020 [facility] nter EKG <pending> Procedures Date Code Description Status 07/20/2020 55054 X-Ray Pelvis Ap Only 1-2 Views C ompleted 06/22/2020 01231 X-Ray Hip Unilateral With Pelvis 2-3 Views Completed Medical Devices Description No Information Available Encounters Type Date Location Provider Dx Diagnosis Office Visit 07/20/2020 4:[place]p [place] Avend[place] MD M16.11 Unilateral primary osteoarthritis, right [...] itis of hip Office Visit 04/20/2020 2[place] M47.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 w/o myelopathy or radiculopathy, [...]
--- OUTSIDE RECORDS SUMMARY | 2020-10-01 06:28 | CCD | Continuity of Care Document ---
Author Author Bronwyn WIGGINS PALoulouC Organization Unknown Address [address] [address] Phone [phone] Care Team Providers Care Wet Wheeler Name Role Phone Jamie Chung [phone] Problems Description No Information Available Social History [...] Available Vital Signs Date Vital Result Comment 09/27/2020 2:44pm BP Systolic 136 mmHg BP Diastolic 94 mmHg Heart Rate 89 /min Body Temperature 96.8 F Height 61.75 inches 5'1.75" Weight 231.00 lb BMI (Body Mass Index) 42.6 kg/m2 Respiratory Rate 19 /min 07/20/2020 4:09pm Body Temperature 97.5 F Height 63 inches 5'3" Weight 220.00 lb BMI (Body Mass Index) 39.0 kg/m2 Results Test Acquired Date Facility Test Result H/L Range Note Prothrombin Time/Inr 09/23/2020 [facility] entr [address] [place] [address] (315)- - Prothrombin Time 12.8 seconds Normal 12.5-14.3 Inr 0.94 Normal 1 Comprehensive Metabolic Profil 09/23/[address] [address] (315)- - Glucose, Fasting 91 mg/dL Normal [...] 1.5 Normal 1.2-2.2 CBC With Differential 09/23/[address] [place] [address] (315)- - White Blood Count 9.9 10 [...] 36.0-66.0 Lymph % 32.9 % Normal 24.0-44.0 [place] % 6.7 % High 0.0-5.0 Eos % 1.0 % Normal 0.0-3.0 Baso % 0.3 % Normal 0.0-1.0 Immature Granulocyte % 0.3 % Normal 0-3.0 Nucleated Red Blood Cell % 0.0 % Normal 0-0 Neutrophils # 5.8 10 Normal 1.5-8.5 Lymph # 3.3 10 Normal 1.5-5.0 [place] # 0.7 10 Normal 0.0-0.8 Eos # 0.1 10 Normal 0.0-0.5 Baso # 0.0 10 Normal 0.0-0.2 Laboratory test finding 09/23/2020 [facility] [address] [place] [address] (315)- - Erythrocyte Sedimentation Rate 21 mm/hr Normal 0-30 Laboratory test finding 09/10/2020 [facility] [address] [place] [address] (315)- - Erythrocyte Sedimentation Rate <pending> Xray 09/10/2020 [facility] nter (315)- - Chest x-ray <pending> Order 09/10/2020 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 Procedures Date Code Description Status 07/20/2020 08763 X-Ray Pelvis Ap Only 1-2 Views C ompleted 06/22/2020 17874 X-Ray Hip Unilateral With Pelvis 2-3 Views Completed Medical Devices Description No Information Available Encounters Type Date Location Provider Dx Diagnosis Office Visit 09/27/2020 2:[place]p [place]-C Z01.818 Encounter for other preprocedural examination M16.11 Unilateral primary osteoarth ritis, right hip Office Visit 07/20/2020 4:00p [place] M16.11 Unilateral primary osteoarthritis, right hip Office Visit 06/22/2020 11[place] M47.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 w/o myelopathy or radiculopathy, lumbosacr region M51.37 Other intervertebral disc de generation, lumbosacral region M51.27 Other intervertebral disc di splacement, lumbosacral region M48.061 Spinal stenosis, lumbar juan j on without neurogenic virgil M43.16 Spondylolisthesis, lumbar re gion M41.26 Other idiopathic scoliosis, lumbar region M16.0 Bilateral primary osteoarthr itis of hip Office Visit 04/20/2020 2:[place] M47.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 w/o myelopathy or radiculopathy, lumbosacr region M51.37 Other intervertebral disc de generation, lumbosacral region M51.27 Other intervertebral disc di splacement, lumbosacral region M48.061 Spinal stenosis, lumbar juan j on without neurogenic virgil M43.16 Spondylolisthesis, lumbar re gion M41.26 Other idiopathic scoliosis, lumbar region M16.0 Bilateral primary osteoarthr itis of hip Assessments Date Code Description Provider 09/27/2020 Z01.818 Encounter for other preprocedura l examination Elizabeth Wiggins PA-C 09/27/2020 M16.11 Unilateral primary osteoarthriti s, right hip Elizabeth Wiggins PA-C 07/20/2020 M16.11 Unilateral primary osteoarthriti s, right hip Sumit Wiggins MD 06/22/2020 M47.817 Spondylosis without myelopathy or radiculopathy, lumbosacral region Casa Sánchez Lani, PA 06/22/2020 M51.37 Other intervertebral disc degene ration, lumbosacral region Casa M Lani, PA 06/22/2020 M51.27 Other intervertebral disc displa cement, lumbosacral region Casa Christinana, PA 06/22/2020 M48.061 Spinal stenosis, lum bar region without neurogenic claudication Casa M Lani, PA 06/22/2020 M43.16 Spondylolisthesis, lumbar region Casa Christinana, PA 06/22/2020 M41.26 Other idiopathic scoliosis, lumb ar region Casa Christinana, PA 06/22/2020 M16.0 Bilateral primary osteoarthritis of hip Casa Christinana, PA 04/20/2020 M47.817 Spondylosis without myelopathy or radiculopathy, lumbosacral region Casa Christinana, PA 04/20/2020 M51.37 Other intervertebral disc degene ration, lumbosacral region Casa Sánchez Lani, PA 04/20/2020 M51.27 Other intervertebral disc displa cement, lumbosacral region Casa Christinana, PA 04/20/2020 M48.061 Spinal stenosis, lum bar region without neurogenic claudication Casa M Lani, PA 04/20/2020 M43.16 Spondylolisthesis, lumbar region Casa Christinana, PA 04/20/2020 M41.26 Other idiopathic scoliosis, lumb ar region Casa Christinana, PA 04/20/2020 M16.0 Bilateral primary osteoarthritis of hip Casa M Lani PA Plan of Treatment Future Appointment(s):* 10/13/2020 2:45 pm - Sumit Wiggins MD at [place] * 10/01/2020 7:30 am - Domenica Velez PA-C at Surgery [facility] Inpatient * 10/01/2020 7:30 am - Sumit Wiggins MD at Surgery [facility] Inpatient Functional Status Description No Information Available Mental Status Description No Information Available Referrals Refer to Reason for Referral Status Appt Date Kathy Mei PA-C SURGERY RT TOTAL HIP ([id number]) RECEIVED WRITTEN AUTH FOR 1 DAY STAY AFTER THAT HOSPITAL MUST CALL TO GET ADDITIONAL TIME TO SURGERY NT Created [address] [facility] [address] [place] [address] [phone]
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
--- OUTSIDE RECORDS SUMMARY | 2020-10-01 06:28 | CCD | Continuity of Care Document ---
Author Author Bronwyn WIGGINS PALoulouC Organization Unknown Address [address] [address] Phone [phone] Care Team Providers Care Switchboard Operator Helper Name Role Phone Jamie Chung [phone] Problems Description No Information Available Social History [...] Result H/L Range Note Prothrombin Time/Inr 09/23/2020 [facility] entr [address] [place] [address] (315)- - Prothrombin Time 12.8 seconds Normal 12.5-14.3 Inr 0.94 Normal 1 Comprehensive Metabolic Profil 09/23/[address] [address] (315)- - Glucose, Fasting 91 mg/dL Normal [...] 1.5 Normal 1.2-2.2 CBC With Differential 09/23/[address] [place] [address] (315)- - White Blood Count 9.9 10 [...] 36.0-66.0 Lymph % 32.9 % Normal 24.0-44.0 [place] % 6.7 % High 0.0-5.0 Eos % 1.0 % Normal 0.0-3.0 Baso % 0.3 % Normal 0.0-1.0 Immature Granulocyte % 0.3 % Normal 0-3.0 Nucleated Red Blood Cell % 0.0 % Normal 0-0 Neutrophils # 5.8 10 Normal 1.5-8.5 Lymph # 3.3 10 Normal 1.5-5.0 [place] # 0.7 10 Normal 0.0-0.8 Eos # 0.1 10 Normal 0.0-0.5 Baso # 0.0 10 Normal 0.0-0.2 Laboratory test finding 09/23/2020 [facility] [address] [place] [address] (315)- - Erythrocyte Sedimentation Rate 21 mm/hr Normal 0-30 Laboratory test finding 09/10/2020 [facility] [address] [place] [address] (315)- - Erythrocyte Sedimentation Rate <pending> Xray 09/10/2020 [facility] nter (315)- - Chest x-ray <pending> Order 09/10/2020 [facility] nter EKG <pending> 1 THERAPUTIC [...] Little GFR Left ESRD 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 <15 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 Procedures Date Code Description Status 07/20/2020 21762 X-Ray Pelvis Ap Only 1-2 Views C ompleted 06/22/2020 17277 X-Ray Hip Unilateral With Pelvis 2-3 Views Completed Medical Devices Description No Information Available Encounters Type Date Location Provider Dx Diagnosis Office Visit 09/27/2020 2:30p [place] Elizabeth Wiggins PA-C M16.11 Unilateral primary osteoarthritis, right hip Office Visit 07/20/2020 4:00p [place] Sumit Wiggins MD M16.11 Unilateral primary osteoarthritis, right hip Office Visit 06/22/2020 11:15a [place] ASHANTI Harley M47.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 w/o myelopathy or radiculopathy, lumbosacr region M51.37 Other intervertebral disc de generation, lumbosacral region M51.27 Other intervertebral disc di splacement, lumbosacral region M48.061 Spinal stenosis, lumbar juan j on without neurogenic virgil M43.16 Spondylolisthesis, lumbar re gion M41.26 Other idiopathic scoliosis, lumbar region M16.0 Bilateral primary osteoarthr itis of hip Office Visit 04/20/2020 2:45p [place] ASHANTI Harley M47.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 w/o myelopathy or radiculopathy, lumbosacr region M51.37 Other intervertebral disc de generation, lumbosacral region M51.27 Other intervertebral disc di splacement, lumbosacral region M48.061 Spinal stenosis, lumbar juan j on without neurogenic virgil M43.16 Spondylolisthesis, lumbar re gion M41.26 Other idiopathic scoliosis, lumbar region M16.0 Bilateral primary osteoarthr itis of hip Assessments Date Code Description Provider 09/27/2020 M16.11 Unilateral primary osteoarthriti s, right hip Elizabeth Wiggins PA-C 07/20/2020 M16.11 Unilateral primary osteoarthriti s, right hip Sumit Wiggins MD 06/22/2020 M47.817 Spondylosis without myelopathy or radiculopathy, lumbosacral region Casa M Lani, PA 06/22/2020 M51.37 Other intervertebral disc degene ration, lumbosacral region Casa Sánchez Lani, PA 06/22/2020 M51.27 Other intervertebral disc displa cement, lumbosacral region Casa M Lani, PA 06/22/2020 M48.061 Spinal stenosis, lum bar region without neurogenic claudication Casa M Lani PA 06/22/2020 M43.16 Spondylolisthesis, lumbar region Casa Sánchez Lani PA 06/22/2020 M41.26 Other idiopathic scoliosis, lumb ar region Casa M Lani PA 06/22/2020 M16.0 Bilateral primary osteoarthritis of hip Casayumiko Christinana, PA 04/20/2020 M47.817 Spondylosis without myelopathy or radiculopathy, lumbosacral region Casa M Lani PA 04/20/2020 M51.37 Other intervertebral disc degene ration, lumbosacral region Casa M Lani, PA 04/20/2020 M51.27 Other intervertebral disc displa cement, lumbosacral region Casa M Lani, PA 04/20/2020 M48.061 Spinal stenosis, lum bar region without neurogenic claudication Casa M ASHANTI Garibay 04/20/2020 M43.16 Spondylolisthesis, lumbar region Casa M Lani, PA 04/20/2020 M41.26 Other idiopathic scoliosis, lumb ar region Casa M Lani PA 04/20/2020 M16.0 Bilateral primary osteoarthritis of hip Casa M ASHANTI Garibay Plan of Treatment Future Appointment(s):* 10/13/2020 2:45 pm - Sumit Wiggins MD at [place] * 10/01/2020 7:30 am - Domenica Velez PA-C at Surgery [facility] Inpatient * 10/01/2020 7:30 am - Sumit Wiggins MD at Surgery [facility] Inpatient Functional Status Description No Information Available Mental Status Description No Information Available Referrals Refer to Reason for Referral Status Appt Date Kathy Mei, [facility] SURGERY RT TOTAL HIP ([id number]) RECEIVED WRITTEN AUTH FOR 1 DAY STAY AFTER THAT HOSPITAL MUST CALL TO GET ADDITIONAL TIME TO SURGERY NT Created [address] [facility] [address] [place] [address] [phone]
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
--- OUTSIDE RECORDS SUMMARY | 2020-10-01 06:29 | CCD ---
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 Role Phone [facility], PA-C Unavailable Unavailabl e Fish, [facility], PA-C Unavailable Unavailabl e Fish, [facility], PA-C Unavailable Unavailabl e Fish, [facility], PA-C Unavailable Unavailabl e Fish, [facility], PA-C Unavailable Unavailabl e Fish, [facility], PA-C Unavailable Unavailabl e Fish, [facility], PA-C Unavailable Unavailabl e Fish, [facility], PA-C Unavailable Unavailabl e Fish, [facility], PA-C Unavailable Unavailabl e Fish, [facility], PA-C Unavailable Unavailabl e Fish, [facility], PA-C Unavailable Unavailabl e Fish, [facility], PA-C Unavailable Unavailabl e Fish, [facility], PA-C Unavailable Unavailabl e Fish, [facility], PA-C Unavailable Unavailabl e Fish, [facility], PA-C Unavailable Unavailabl e Fish, [facility], PA-C Unavailable Unavailabl e Fish, [facility], PA-C Unavailable Unavailabl e Fish, [facility], PA-C Unavailable Unavailabl e Fish, [facility], PA-C Unavailable Unavailabl e Fish, [facility], PA-C Unavailable Unavailabl e Fish, [facility], PA-C Unavailable Unavailabl e Fish, [facility], PA-C Unavailable Unavailabl e Fish, [facility], PA-C Unavailable Unavailabl e Fish, [facility], PA-C Unavailable Unavailabl e Fish, [facility], PA-C Unavailable Unavailabl e Fish, [facility], PA-C Unavailable Unavailabl e Fish, [facility], PA-C Unavailable Unavailabl e Fish, [facility], PA-C Unavailable Unavailabl e Fish, [facility], PA-C Unavailable Unavailabl e Fish, [facility], PA-C Unavailable Unavailabl e Fish, [facility], PA-C Unavailable Unavailabl e Fish, [facility], PA-C Unavailable Unavailabl e Fish, [facility], PA-C Unavailable Unavailabl e Fish, B Sumit SPEARS Unavailable Unavailable Fish, B Sumit SPEARS Unavailable Unavailable Fish, B Sumit SPEARS Unavailable Unavailable Fish, B Sumit SPEARS Unavailable Unavailable Fish, B Sumit SPEARS Unavailable Unavailable Fish, B Sumit SPEARS Unavailable Unavailable Fish, B Sumit SPEARS Unavailable Unavailable Fish, B Sumit SPEARS Unavailable Unavailable Fish, B Sumit SPEARS Unavailable Unavailable Fish, B Sumit SPEARS Unavailable Unavailable Fish, B Sumit SPEARS Unavailable Unavailable Fish, B Sumit SPEARS Unavailable Unavailable Fish, B Sumit SPEARS Unavailable Unavailable Fish, B Sumit SPEARS Unavailable Unavailable Fish, B Sumit SPEARS Unavailable Unavailable Fish, B Sumit SPEARS Unavailable Unavailable Fish, B Sumit SPEARS Unavailable Unavailable Fish, B Sumit SPEARS Unavailable Unavailable Fish, B Sumit SPEARS Unavailable Unavailable Fish, B Sumit SPEARS Unavailable Unavailable Fish, B uSmit SPEARS Unavailable Unavailable Fish, B Sumit SPEARS Unavailable Unavailable Fish, B Sumit SPEARS Unavailable Unavailable Fish, B Sumit SPEARS Unavailable Unavailable Fish, B Sumit SPEARS Unavailable Unavailable Fish, B Sumit SPEARS Unavailable Unavailable Fish, B Sumit SPEARS Unavailable Unavailable Fish, B Sumit SPEARS Unavailable Unavailable Fish, B Sumit SPEARS Unavailable Unavailable Fish, B Sumit SPEARS Unavailable Unavailable Fish, B Sumit SPEARS Unavailable Unavailable Fish, B Sumit SPEARS Unavailable Unavailable Fish, B Sumit SPEARS Unavailable Unavailable Fish, B Sumit SPEARS Unavailable Unavailable Fish, Adiel Arana MD Unavailable Unavailable Fish, Adiel Arana MD Unavailable Unavailable Fish, B Smuit SPEARS Unavailable Unavailable Fish, Adiel Arana MD Unavailable Unavailable Fish, Adiel Arana MD Unavailable Unavailable Fish, Adiel Arana MD Unavailable Unavailable Fish, Adiel Arana MD Unavailable Unavailable Fish, Adiel Arana MD Unavailable Unavailable Fish, Adiel Arana MD Unavailable Unavailable Fish, Adiel Arana MD Unavailable Unavailable Fish, B Sumit SPEARS Unavailable Unavailable Fish, B Sumit SPEARS Unavailable Unavailable Fish, B Sumit SPEARS Unavailable Unavailable Fish, B Sumit SPEARS Unavailable Unavailable Fish, B Sumit SPEARS Unavailable Unavailable Fish, B Sumit SPEARS Unavailable Unavailable Fish, B Sumit SPEARS Unavailable Unavailable Fish, B Sumit SPEARS Unavailable Unavailable Fish, B Sumit SPEARS Unavailable Unavailable SIMONE, M CASA PA Unavailable Unavailable SIMONE, M CASA PA Unavailable Unavailable SIMONE, M CASA PA Unavailable Unavailable SIMONE, M CASA PA Unavailable Unavailable SIMONE, M CASA PA Unavailable Unavailable SIMONE, M CASA PA Unavailable Unavailable SIMONE, M CASA PA Unavailable Unavailable SIMONE, M CASA PA Unavailable Unavailable SIMONE, M CASA PA Unavailable Unavailable SIMONE, M CASA PA Unavailable Unavailable SIMONE, M CASA PA Unavailable Unavailable SIMONE, M CASA PA Unavailable Unavailable SIMONE, M CASA PA Unavailable Unavailable SIMONE, M CASA PA Unavailable Unavailable SIMONE, M CASA PA Unavailable Unavailable SIMONE, M CASA PA Unavailable Unavailable SIMONE, M CASA PA Unavailable Unavailable SIMONE, M CASA PA Unavailable Unavailable SIMONE, M CASA PA Unavailable Unavailable SIMONE, M CASA PA Unavailable Unavailable SIMONE, M CASA PA Unavailable Unavailable SIMONE, M CASA PA Unavailable Unavailable SIMONE, M CASA PA Unavailable Unavailable SIMONE, M CASA PA Unavailable Unavailable SIMONE, M CASA PA Unavailable Unavailable SIMONE, M CASA PA Unavailable Unavailable SIMONE, M CASA PA Unavailable Unavailable SIMONE, M CASA PA Unavailable Unavailable SIMONE, M CASA PA Unavailable Unavailable SIMONE, M CASA PA Unavailable Unavailable SIMONE, M CASA PA Unavailable Unavailable SIMONE, M CASA PA Unavailable Unavailable SIMONE, M CASA PA Unavailable Unavailable SIMONE, M CASA PA Unavailable Unavailable SIMONE, M CASA PA Unavailable Unavailable SIMONE, M CASA PA Unavailable Unavailable SIMONE, M CASA PA Unavailable Unavailable SIMONE, M CASA PA Unavailable Unavailable SIMONE, M CASA PA Unavailable Unavailable SIMONE, M CASA PA Unavailable Unavailable SIMONE, M CASA PA Unavailable Unavailable SIMONE, M CASA PA Unavailable Unavailable SIMONE, M CASA PA Unavailable Unavailable SIMONE, M CASA PA Unavailable Unavailable SIMONE, M CASA PA Unavailable Unavailable SIMONE, M CASA PA Unavailable Unavailable SIMONE, M CASA PA Unavailable Unavailable SIMONE, M CASA PA Unavailable Unavailable Re-disclosure Warning The records that you are about to access may contain information from federally-assisted alcohol or drug abuse programs. If such information is present, then the following federally mandated warning applies: This information has been disclosed to you from records protected by federal confidentiality rules (42 CFR part 2). The federal rules prohibit you from making any further disclosure of this information unless further disclosure is expressly permitted by the written consent of the person to whom it pertains or as otherwise permitted by 42 CFR part 2. A general authorization for the release of medical or other information is NOT sufficient for this purpose. The Federal rules restrict any use of the information to criminally investigate or prosecute any alcohol or drug abuse patient.The records that you are about to access may contain highly sensitive health information, the redisclosure of which is protected by Article 27-F of the [facility] Public Health law. If you continue you may have access to information: Regarding HIV / AIDS; Provided by facilities licensed or operated by the [facility] Office of Mental Health; or Provided by the [facility] Office for People With Developmental Disabilities. If such information is present, then the following [facility] mandated warning applies: This information has been disclosed to you from confidential records which are protected by state law. State law prohibits you from making any further disclosure of this information without the specific written consent of the person to whom it pertains, or as otherwise permitted by law. Any unauthorized further disclosure in violation of state law may result in a fine or longterm sentence or both. A general authorization for the release of medical or other information is NOT sufficient authorization for further disc losure. Allergies and Adverse Reactions Type Description Substance Reaction Status Data Source(s ) aspirin Aspirin Aspirin belly pain Active eCW1 ([facility]) Codeine Sulfate Codeine Sulfate Codeine Sulfate Nausea/Vomiting Acti ve eCW1 ([facility]) Adverse Reaction Adverse Reaction Codeine ME DENT ([facility]) Encounters Encounter Providers Location Date Indications Data Source(s ) Office Visit Attender: Elizabeth MCALLISTER PA-C Physical Therapy 09/27/2020 01:30:00 PM EST MEDENT ([facility]) Unknown [address] [facility] [address] 09/27/2020 12:00:00 AM EST [facility]CW1 [facility] Outpatient [address] [facility] [address] 08/17/2020 12:00:00 AM EST eCW1 ([facility]) Office Visit Attender: Sumit Avendano MD Physical Therapy 2019 03:00:00 PM EST MEDENT ([facility]) Unknown [address] [facility] [phone] 07/08/2020 12:00:00 AM EST eCW1 ([facility]) Outpatient [address] [facility] [address] 07/06/2020 12:00:00 AM EST eCW1 ([facility]) OFFICE OUTPATIENT VISIT 15 MINUTES Attender: CASA BURRELL Ph ysical Therapy 06/22/2020 10:15:00 AM EST MEDENT ([facility]) Unknown [address] [facility] [address] 06/11/2020 12:00:00 AM EDT eCW1 ([facility]) Unknown [address] [facility] [address] 05/11/2020 12:00:00 AM EDT eCW1 ([facility]) Unknown [address] [facility] [address] 05/11/2020 12:00:00 AM EDT eCW1 ([facility]) OFFICE OUTPATIENT VISIT 15 MINUTES Attender: CASA BURRELL Ph ysical Therapy 04/20/2020 02:45:00 PM EDT MEDENT ([facility]) [facility] [address] [place] [address] 04/13/2020 12:00:00 AM EDT eCW1 ([facility]) [facility] [address] [place] [address] 03/03/2020 12:00:00 AM EDT eCW1 ([facility]) Outpatient [address] [facility] [address] 02/27/2020 12:00:00 AM EDT eCW1 ([facility]) Outpatient Referrer: CASA BURRELL 02/09/2020 05:53:00 AM EDT [facility] Outpatient [address] [facility] [place] [address] 01/23/2020 12:00:00 AM EDT eCW1 ([facility]) [place] [address] [facility] [address] 01/22/2020 12:00:00 AM EDT eCW1 ([facility]) [facility] [address] [place] [address] 01/15/2020 12:00:00 AM EDT eCW1 ([facility]) [facility] [address] [place] [address] 01/15/2020 12:00:00 AM EDT eCW1 ([facility]) [facility] Resident [address] [place] [address] 01/13/2020 12:00:00 AM EDT eCW1 ([facility]) [facility] [address] [facility] [address] 01/13/2020 12:00:00 AM EDT eCW1 ([facility]) Outpatient Attender: CASA BURRELL Physical Therapy 12/18 02:45:00 PM EDT MEDENT ([facility]) [facility] [address] [place] [address] 01/05/2020 12:00:00 AM EDT eCW1 (Critical access hospital) Outpatient Referrer: CASA BURRELL 01/02/2020 01:26:00 PM EDT [facility] Outpatient Referrer: CASA BURRELL 01/02/2020 01:26:00 PM EDT [facility] Outpatient Referrer: CASA BURRELL 01/02/2020 01:25:00 PM EDT [facility] Outpatient Referrer: CASA BURRELL 01/02/2020 08:41:00 AM EDT [facility] Outpatient Referrer: CASA BURRELL 01/02/2020 08:39:00 AM EDT [facility] Res[place] [address] [place], [place] [address] 12/31/2019 12:00:00 AM EDT eCW1 [facility] Outpatient Referrer: CASA BURRELL 2019 01:50:00 PM EDT [facility] Outpatient Referrer: CASA BURRELL 2019 01:49:00 PM EDT [facility] Outpatient Referrer: CASA BURRELL 2019 08:29:00 AM EDT [facility] Resident [address] [place] [phone] 2019 12:00:00 AM EDT eCW1 ([facility]) [facility] Resident [address] [place] [phone] 12/22/2019 12:00:00 AM EDT eCW1 ([facility]) [facility] Resident [address] [place] [phone] 11/27/2019 12:00:00 AM EDT eCW1 ([facility]) Outpatient Referrer: CASA BURRELL 11/24/2019 09:05:00 AM EDT [facility] [address] [address] 11/24/2019 12:00:00 AM EDT eCW1 ([facility]) Outpatient Referrer: CASA BURRELL 11/21/2019 03:09:00 PM EDT [facility] Outpatient Referrer: CASA BURRELL 11/21/2019 03:03:00 PM EDT [facility] [address] [place] [phone] 11/12/2019 12:00:00 AM EDT eCW1 ([facility]) [facility] Alivia [address] [place] [phone] 10/29/2019 12:00:00 AM EDT eCW1 ([facility]) [facility] Resident [address] [place] [phone] 10/28/2019 12:00:00 AM EDT eCW1 ([facility]) [facility] [address] [place] [address] 10/23/2019 12:00:00 AM EST eCW1 ([facility]) [facility] [address] [place] [phone] 10/16/2019 12:00:00 AM EST eCW1 ([facility]) [facility] [address] [place] [address] 10/15/2019 12:00:00 AM EST eCW1 ([facility]) [facility] [address] [place] [address] 10/14/2019 12:00:00 AM EST eCW1 ([facility]) [facility] [address] [place] [address] 10/10/2019 12:00:00 AM EST eCW1 ([facility]) Outpatient Referrer: CASA BURRELL 10/07/2019 03:08:00 PM EST [facility] Outpatient Referrer: CASA BURRELL 09/23/2019 07:53:00 AM EST [facility] Resident [address] [place] [phone] 09/23/2019 12:00:00 AM EST eCW1 ([facility]) Outpatient Referrer: CASA BURRELL 09/22/2019 02:24:00 PM EST [facility] Outpatient Referrer: CASA BURRELL 09/22/2019 09:59:00 AM EST [facility] Outpatient Referrer: CASA BURRELL 09/22/2019 09:57:00 AM EST [facility] Outpatient Attender: CASA BURRELL Physical Therapy 08/22 08:15:00 AM EST MEDENT ([facility]) Outpatient Referrer: CASA BURRELL 09/15/2019 12:39:00 PM EST [facility] Resident [address] [place] [phone] 09/08/2019 12:00:00 AM EST eCW1 ([facility]) [facility] Resident [address] [place] [phone] 09/05/2019 12:00:00 AM EST eCW1 ([facility]) [facility] [address] [place] [address] 09/03/2019 12:00:00 AM EST eCW1 ([facility]) [facility] Resident [address] [place] [phone] 09/01/2019 12:00:00 AM EST eCW1 ([facility]) [facility] Resident [address] [place] [phone] 08/25/2019 12:00:00 AM EST eCW1 ([facility]) [facility] Resident [address] [place] [phone] 08/25/2019 12:00:00 AM EST eCW1 ([facility]) Outpatient Referrer: CASA BURRELL 08/12/2019 08:08:00 AM EST [facility] Outpatient Attender: CASA BURRELL Physical Therapy 07/21 10:15:00 AM EST MEDENT ([facility]) Medications Medication Brand Name Start Date Product Form Dose Route Admi nistrative Instructions Pharmacy Instructions Status Indications Reaction Description Data Source(s) Mupirocin 0.02 MG/MG Topical Ointment Mupirocin 09/20/2020 12:00:00 AM EST active [facility] chlorhexidine gluconate 40 MG/ML Medicated Liquid Soap [Hibi clens] Hibiclens 09/20/2020 12:00:00 AM EST active MEDENT ([facility]) Acetaminophen 300 MG / Codeine Phosphate 60 MG Oral Tablet Acetaminophen-Codeine #4 300-60 MG Acetaminophen-Codeine #4 300-60 MG 07/09/2020 12:00:00 AM EST 1.0 {tablet_as_needed} active Acetamino phen-Codeine #4 300-60 MG eCW1 ([facility]) Docusate Sodium 100 MG Oral Capsule [DOK] Dok 06/10/2020 12:00 :00 AM EDT ORAL active [facility] ([facility]) Docusate Sodium 100 MG Oral Capsule Docusate Sodium 04/20/2020 1 2:00:00 AM EDT ORAL completed MEDENT ([facility]) Acetaminophen 300 MG / Codeine Phosphate 60 MG Oral Ta blet Acetaminophen-Codeine #4 04/20/2020 12:00:00 AM EDT active MEDENT ([facility]) Acetaminophen 300 MG / Codeine Phosphate 30 MG Oral Ta blet Acetaminophen/Codeine Phosphate 02/05/2020 12:00:00 AM EDT ORAL completed MEDENT ([facility]) Acetaminophen 300 MG / Codeine Phosphate 30 MG Oral Ta blet Acetaminophen-Codeine #3 01/07/2020 12:00:00 AM EDT completed MEDENT ([facility]) tramadol hydrochloride 50 MG Oral Tablet Tramadol HCl 50 MG Tramadol HCl 50 MG 12/22/2019 12:00:00 AM EDT 1.0 {tablet_as_needed} active Tramadol HCl 50 MG eCW1 ([facility]) tramadol hydrochloride 50 MG Oral Tablet Tramadol HCl 50 MG Tramadol HCl 50 MG 12/22/2019 12:00:00 AM EDT 1.0 {tablet_as_needed} active Tramadol HCl 50 MG eCW1 ([facility]) tramadol hydrochloride 50 MG Oral Tablet Tramadol HCl 50 MG Tramadol HCl 50 MG 12/22/2019 12:00:00 AM EDT 1.0 {tablet_as_needed} active Tramadol HCl 50 MG eCW1 ([facility]) tramadol hydrochloride 50 MG Oral Tablet Tramadol HCl 50 MG Tramadol HCl 50 MG 12/22/2019 12:00:00 AM EDT 1.0 {tablet_as_needed} active Tramadol HCl 50 MG eCW1 ([facility]) tramadol hydrochloride 50 MG Oral Tablet Tramadol HCl 50 MG Tramadol HCl 50 MG 12/22/2019 12:00:00 AM EDT 1.0 {tablet_as_needed} active Tramadol HCl 50 MG eCW1 ([facility]) tramadol hydrochloride 50 MG Oral Tablet Tramadol HCl 50 MG Tramadol HCl 50 MG 12/22/2019 12:00:00 AM EDT 1.0 {tablet_as_needed} active Tramadol HCl 50 MG eCW1 ([facility]) tramadol hydrochloride 50 MG Oral Tablet Tramadol HCl 50 MG Tramadol HCl 50 MG 12/22/2019 12:00:00 AM EDT 1.0 {tablet_as_needed} active Tramadol HCl 50 MG eCW1 ([facility]) tramadol hydrochloride 50 MG Oral Tablet Tramadol HCl 50 MG Tramadol HCl 50 MG 12/22/2019 12:00:00 AM EDT 1.0 {tablet_as_needed} active Tramadol HCl 50 MG eCW1 ([facility]) gabapentin 600 MG Oral Tablet Gabapentin 11/18/2019 12:00:00 AM EDT ORAL active MEDENT ([facility] Physical Therapy evaluate and treat UNK 11/06/2019 12:00:00 AM EDT suspended Physical Therapy evaluate and tr eat eCW1 ([facility]) Physical Therapy evaluate and treat UNK 11/06/2019 12:00:00 AM EDT suspended Physical Therapy evaluate and tr eat eCW1 ([facility]) Physical Therapy evaluate and treat UNK 11/06/2019 12:00:00 AM EDT suspended Physical Therapy evaluate and tr eat eCW1 ([facility]) Physical Therapy evaluate and treat UNK 11/06/2019 12:00:00 AM EDT active as directed eCW1 ([facility]) Physical Therapy evaluate and treat UNK 11/06/2019 12:00:00 AM EDT suspended Physical Therapy evaluate and tr eat eCW1 ([facility]) Physical Therapy evaluate and treat UNK 11/06/2019 12:00:00 AM EDT suspended Physical Therapy evaluate and tr eat eCW1 ([facility]) Physical Therapy evaluate and treat UNK 11/06/2019 12:00:00 AM EDT suspended Physical Therapy evaluate and tr eat eCW1 ([facility]) Physical Therapy evaluate and treat UNK 11/06/2019 12:00:00 AM EDT suspended Physical Therapy evaluate and tr eat eCW1 ([facility]) Physical Therapy evaluate and treat UNK 11/06/2019 12:00:00 AM EDT suspended Physical Therapy evaluate and tr eat eCW1 ([facility]) LidoPatch Pain Relief 3.6-1.25 % LidoPatch Pain Relief 3.6-1 .25 % 10/28/2019 12:00:00 AM EDT suspended LidoP atch Pain Relief 3.6-1.25 % W1 ([facility]) LidoPatch Pain Relief 3.6-1.25 % LidoPatch Pain Relief 3.6-1 .25 % 10/28/2019 12:00:00 AM EDT suspended LidoP atch Pain Relief 3.6-1.25 % W1 ([facility]) LidoPatch Pain Relief 3.6-1.25 % LidoPatch Pain Relief 3.6-1 .25 % 10/28/2019 12:00:00 AM EDT suspended LidoP atch Pain Relief 3.6-1.25 % W1 ([facility]) LidoPatch Pain Relief 3.6-1.25 % LidoPatch Pain Relief 3.6-1 .25 % 10/28/2019 12:00:00 AM EDT suspended LidoP atch Pain Relief 3.6-1.25 % eCW1 ([facility]) LidoPatch Pain Relief 3.6-1.25 % LidoPatch Pain Relief 3.6-1 .25 % 10/28/2019 12:00:00 AM EDT suspended LidoP atch Pain Relief 3.6-1.25 % eCW1 ([facility]) LidoPatch Pain Relief 3.6-1.25 % LidoPatch Pain Relief 3.6-1 .25 % 10/28/2019 12:00:00 AM EDT suspended LidoP atch Pain Relief 3.6-1.25 % eCW1 ([facility]) LidoPatch Pain Relief 3.6-1.25 % LidoPatch Pain Relief 3.6-1 .25 % 10/28/2019 12:00:00 AM EDT suspended LidoP atch Pain Relief 3.6-1.25 % eCW1 ([facility]) LidoPatch Pain Relief 3.6-1.25 % LidoPatch Pain Relief 3.6-1 .25 % 10/28/2019 12:00:00 AM EDT suspended L[employer]P [employer]ch Pain Relief 3.6-1.25 % eCW1 ([facility]) Polyethylene Glycol - Polyethylene Glycol - 09/23/2019 12:00:00 AM EST active 17 gm in 8 oz eCW1 ([facility]) Polyethylene Glycol - Polyethylene Glycol - 09/23/2019 12:00:00 AM EST active 17 gm in 8 oz eCW1 ([facility]) Senna 8.6 MG Senna 8.6 MG 09/23/2019 12:00:00 AM EST active 2 capsules at bedtime as needed eCW1 ([facility]) Senna 8.6 MG Senna 8.6 MG 09/23/2019 12:00:00 AM EST active 2 capsules at bedtime as needed eCW1 ([facility]) Senna 8.6 MG Senna 8.6 MG 09/23/2019 12:00:00 AM EST active 2 capsules at bedtime as needed eCW1 ([facility]) Polyethylene Glycol - Polyethylene Glycol - 09/23/2019 12:00:00 AM EST active 17 gm in 8 oz eCW1 ([facility]) gabapentin 600 MG Oral Tablet Gabapentin 09/19/2019 12:00:00 AM EST completed MEDENT ([facility] ) Nortriptyline 10 MG Oral Capsule Nortriptyline HCL 09/19/2019 12:00 :00 AM EST completed MEDENT ([facility] ) gabapentin 400 MG Oral Capsule Gabapentin 06/27/2019 12:00:00 AM EST ORAL completed MEDENT ([facility] ) Insurance Providers Payer name Policy type / Coverage type Policy ID Covered libertarian ID Covered libertarian's relationship to osman Policy Osman Plan Information [employer] COMM[employer]ITY PLAN MCDO [id number] SP [id number] [employer] COMMUNITY PLAN MCDO [id number] SP [id number] [place]ED[place] [id number] SP [id number] [employer] COMMUNITY PLAN MCDO [id number] SP [id number] [employer] COMMUNITY PLAN MCDO [id number] SP [id number] [facility]) O [id number] S [id number] [facility] O [id number] S [id number] MEDICAID [id number] SP [id number] [facility]) O [id number] S [id number] UN COMMUNITY PLAN XIX -RECURRING [id number] 18 [id number] SELF PAY ONLY [id number] SP [id number] Problems, Conditions, and Diagnoses Code Display Name Description Problem Type Effective Dates Data Source(s) M16.11 [id number] Primary osteoarthritis of right hip Pr oblem 07/06/2020 12:00:00 AM EST eCW1 ([facility]) Z80.3 [id number] Family history of breast cancer Problem 10/14/2019 12:00:00 AM EST eCW1 ([facility]) Z80.3 [id number] Family history of breast cancer Problem 10/14/2019 12:00:00 AM EST eCW1 ([facility]) K59.00 [id number] Constipation, unspecified constipation ty pe Problem 09/23/2019 12:00:00 AM EST eCW1 ([facility]) N89.8 [id number] Vaginal cyst Problem 09/03/2019 12:00:00 AM EST eCW1 ([facility]) N89.8 [id number] Vaginal cyst Problem 09/03/2019 12:00:00 AM EST eCW1 ([facility]) Surgeries/Procedures Procedure Description Date Indications Data Source(s) RADIOLOGIC EXAMINATION PELVIS 1/2 VIEWS 07/20/2020 12: 00:00 AM EST MEDENT ([facility]) Immunization: Flublok Quadrivalent (18 years & older) 0.5mL IM (Influenza) 07/06/2020 12:00:00 AM EST eCW1 ([facility]) X-Ray Hip Unilateral With Pelvis 2-3 Views 06/22/2020 12:00:00 AM EST MED[facility] ([facility]) Results ID Date Data Source [id number] 09/26/2020 10:30:00 AM EST [facility] Name Value Range Interpretation Code Description Data Farrah rce(s) Supporting Document(s) SARS coronavirus 2 RNA Not Detected [facility] [place] This lab was ordered by [facility] and reported by [facility]. ID Date Data Source [id number] 09/23/2020 01:55:00 PM EST MEDENT ([facility]) Name Value Range Interpretation Code Description Data Farrah rce(s) Supporting Document(s) Erythrocyte sedimentation rate by Westergren method 21 mm/hr 0-30 MEDENT ([facility]) ID Date Data Source [id number] 09/23/2020 01:55:00 PM EST MEDENT ([facility]) Name Value Range Interpretation Code Description Data Farrah rce(s) Supporting Document(s) White Blood Count 9.9 10 4.0-10.0 MEDENT ([facility]) Red Blood Count 4.16 10 4.00-5.40 MED[facility] ([facility]) Hemoglobin 14.3 g/dL 12.0-15.5 MED[facility] ([facility]) Hematocrit 42.0 % 36.0-47.0 MED[facility] ([facility]) Mean Corpuscular Hemoglobin 34.4 pg 27.0-33.0 MEDENT ([facility]) Mean Corpuscular Volume 101.0 fl 80.0-96.0 M EDENT ([facility]) Red Cell Distribution Width 12.2 % 11.5-14.5 MED[facility] ([facility]) Platelet Count, Automated 239 10 150-450 MED[facility] ([facility]) Mean Corpuscular HGB Conc 34.0 g/dL 32.0-36.5 MED[facility] ([facility]) Lymph % 32.9 % 24.0-44.0 [facility] ([facility]) Neutrophils % 58.8 % 36.0-66.0 [facility] Eos % 1.0 % 0.0-3.0 [facility] ([facility]) [place] % 6.7 % 0.0-5.0 [facility] ([facility]) Baso % 0.3 % 0.0-1.0 [facility] ([facility]) Nucleated Red Blood Cell % 0.0 % 0-0 MED ENT ([facility]) Neutrophils # 5.8 10 1.5-8.5 [facility] ([facility]) Immature Granulocyte % 0.3 % 0-3.0 MEDENT ([facility]) Lymph # 3.3 10 1.5-5.0 [facility] ([facility]) [place] # 0.7 10 0.0-0.8 [facility] ([facility]) Eos # 0.1 10 0.0-0.5 [facility] ([facility]) Baso # 0.0 10 0.0-0.2 [facility] ([facility]) ID Date Data Source [id number] 09/23/2020 01:55:00 PM EST MEDENT ([facility]) Name Value Range Interpretation Code Description Data Farrah rce(s) Supporting Document(s) Glucose, Fasting 91 mg/dL 70-100 MED[facility] ([facility]) Creatinine For GFR 0.86 mg/dL 0.55-1.30 MED[facility] ([facility]) Blood Urea Nitrogen 17 mg/dL 7-18 MED[facility] ([facility]) Potassium Serum 4.6 meq/L 3.5-5.1 MEDENT ([facility]) Sodium Level 141 meq/L 136-145 MEDENT ([facility]) Glomerular Filtration Rate Laboratory test result MEDENT ([facility]) <content>Units are mL/min/1.73 m2</content>
<content></content>
<content>Chronic Kidney Disease Staging per NKF:</content>
<content></content>
<content>Stage I & II GFR >=60 Normal to Mildly Decreased</content>
<content>Stage III GFR 30- 59 Moderately Decreased</content>
<content>Stage IV GFR 15-29 Severely Decreased</content>
<content>Stage V GFR <15 Very Little GFR Left</content>
<content>ESRD GFR <15 on SUGAR TRUCKER</content>
<content></content> Carbon Dioxide Level 28 meq/L 21-32 [facility] ( [facility]) Chloride Level 106 meq/L 98-107 MED[facility] ([facility] Ast/Sgot 11 U/L 7-37 [facility] ([facility]) Anion Gap 7 meq/L 8-16 MED[facility] ([facility]) Calcium Level 9.7 mg/dL 8.5-10.1 MED[facility] ([facility]) Bilirubin,Total 0.3 mg/dL 0.2-1.0 MED[facility] ([facility]) Alkaline Phosphatase 74 U/L 45-117 [facility] ( [facility]) Alt/SGPT 29 U/L 12-78 [facility] ([facility]) Total Protein 7.0 GM/DL 6.4-8.2 MED[facility] ([facility]) Albumin 4.2 GM/DL 3.2-5.2 [facility] ([facility]) Albumin/Globulin Ratio 1.5 1.2-2.2 MED[facility] ([facility]) ID Date Data Source [id number] 09/23/2020 01:55:00 PM EST MED[facility] ([facility]) Name Value Range Interpretation Code Description Data Farrah rce(s) Supporting Document(s) Inr 0.94 [facility] ([facility]) THERAPUTIC HUMAN INR VALUES INDICATIONS NORMAL RANGES PROPHYLAXIS/TREATMENT OF: VENOUS THROMBOSIS 2.0-3.0 PULMONARY EMBOLISM 2.0-3.0 PREVENTION OF SYSTEMIC EMBOLISM FROM: TISSUE HEART VALVES 2.0-3.0 ACUTE MYOCARDIAL INFARCTION 2.0-3.0 VALVULAR HEART DISEASE 2.0-3.0 ATRIAL FIBRILLATION 2.0-3.0 MECHANICAL VALVES(HIGH RISK) 2.5-3.5 RECURRENT MYOCARDIAL INFARCTION 2.5-3.5 Prothrombin Time 12.8 s 12.5-14.3 MED[facility] ([facility]) ID Date Data Source [id number] 09/10/2020 02:44:00 PM EST MEDENT ([facility]) Name Value Range Interpretation Code Description Data Farrah rce(s) Supporting Document(s) Erythrocyte sedimentation rate by Westergren method Laboratory test result MEDENT ([facility] ) ID Date Data Source [id number] 09/10/2020 02:38:00 PM EST MEDENT ([facility] ) Name Value Range Interpretation Code Description Data Farrah rce(s) Supporting Document(s) EKG Laboratory test result MEDENT ([facility] ) ID Date Data Source [id number] 09/10/2020 02:37:00 PM EST MEDENT ([facility] ) Name Value Range Interpretation Code Description Data Farrah rce(s) Supporting Document(s) Chest x-ray Laboratory test result MEDEN T ([facility] ) ID Date Data Source [id number] 05/06/2020 12:00:00 AM EDT [facility] [place] Patient Name: TOYA WALLS[address] [facility] Date of : 1960 4 Date of Exam: 05/06/2020DONNIE Ricks [id number]#: Fax: [phone] EXAM: ARTHROCENTESIS RTHIP-ASPIR / INJ STEROID/PAIN MEDSCLINICAL INFORMATION: Osteoarthritis of the right hip.The procedure was performed by Tamiko Hanna [facility], under the directsupervision of Dr. Jarrett.The be nefits and risks including but not limited to pain, infection,bleeding and anaphylaxis were explained to the patient as well as thepotential therapeutic benefits of the procedure and the possibility of anunsuccessful procedure, and an informed consent was obtained. Directlyprior to the start of the procedure, a formal time-out was completed.The right femoral neck was localized using fluoroscopic guidance. The skinwas prepped and draped in a sterile fashion. Approximately 5 cc of 1%Lidocaine 10 mg/ml was used as a local anesthetic. Using fluoroscopicguidance, a #22 gauge spinal needle was inserted and advanced into theright femoral neck. Approximately 1 cc of Lidocaine mg/ml was injected toverify placement. 6 cc solution containing 5 cc of 1% Lidocaine 10 mg/mland 1 cc of Kenalog 40 mg/ml was injected into the joint space. The needlewas then removed.The patient tolerated the procedure well and there were no immediatecomplications.Fluoroscopic images are performed with last image hold technology. Theseimages require no additional radiation to acquire.Fluoroscopy time was 11 seconds at 3 pulses/second. This is equal to2.75seconds continuous fluoroscopy time which is a 75% reduction inradiation.Dictated by Tamiko Hanna, SHERE[facility], with Dr. Jarrett.RANDI Snyder/Nabor you for referring TOYA WALLS to our office. Electronically Signed - DANIELA JARRETT DO 05/07/20 12:32 Name Value Range Interpretation Code Description Data Farrah rce(s) Supporting Document(s) ID Date Data Source [id number] 05/06/2020 12:00:00 AM EDT [facility] [place] Patient Name: PRAVEEN WALLS [facility] Date of : 1960 2 Date [facility] Ex[facility]: [facility]2020[facility] [id number] Fax: [phone] EXAM: ARTHROCENTESIS RTHIP-ASPIR / INJ STEROID/PAIN MEDSCLINICAL INFORMATION: Osteoarthritis of the right hip.The procedure was performed by Tamiko Hanna [facility], under the directsupervision of Dr. Jarrett.The be nefits and risks including but not limited to pain, infection,bleeding and anaphylaxis were explained to the patient as well as thepotential therapeutic benefits of the procedure and the possibility of anunsuccessful procedure, and an informed consent was obtained. Directlyprior to the start of the procedure, a formal time-out was completed.The right femoral neck was localized using fluoroscopic guidance. The skinwas prepped and draped in a sterile fashion. Approximately 5 cc of 1%Lidocaine 10 mg/ml was used as a local anesthetic. Using fluoroscopicguidance, a #22 gauge spinal needle was inserted and advanced into theright femoral neck. Approximately 1 cc of Lidocaine mg/ml was injected toverify placement. 6 cc solution containing 5 cc of 1% Lidocaine 10 mg/mland 1 cc of Kenalog 40 mg/ml was injected into the joint space. The needlewas then removed.The patient tolerated the procedure well and there were no immediatecomplications.Fluoroscopic images are performed with last image hold technology. Theseimages require no additional radiation to acquire.Fluoroscopy time was 11 seconds at 3 pulses/second. This is equal to2.75seconds continuous fluoroscopy time which is a 75% reduction inradiation.Dictated by Tamiko Hanna [facility], with Dr. Jarrett.Daniela Jarrett, RANDI/slmTkathrynk you for referring TOYA WALLS to our office. Electronically Signed - DANIELA JARRETT DO 05/07/20 12:32 Name Value Range Interpretation Code Description Data Farrah rce(s) Supporting Document(s) ID Date Data Source [id number] 01/02/2020 12:00:00 AM EDT [facility] [place] Patient Name: MICAH [id number] Date of : [address] [address] Date of Exam: 01/02/2020#: Fax: [phone] EXAM: ARTHROCENTESIS OF LARGE JOINT W/O USCLINICAL INFORMATION: Osteoarthritis of the right hipThe procedure was performed by Tamiko Hanna [facility], under the directsupervision of Dr. Jarrett.The benefits and risks including but not limited to pain, infection,bleeding and anaphylaxis were explained to the patient as well as thepotential therapeutic benefits of the procedure and the possibility of anunsuccessful procedure, and an informed consent was obtained. Directlyprior to the start of the procedure, a formal time-out was completed.The right femoral neck joint space was localized using fluoroscopicguidance. The skin was prepped and draped in a sterile fashion.Approximately 5 cc of 1% Lidocaine 10 mg/ml was used as a local anesthetic. Using fluoroscopic guidance, a #22 gauge spinal needle was inserted andadvanced into the right femoral neck joint space. Approximately 1 cc ofOmnipaque 300 mg/ml was injected to verify placement. A 6 cc solutioncontaining 5 cc of 1% Lidocaine 10 mg/ml and 1 cc of Kenalog 40 mg/ml wasinjected into the joint space. The needle was then removed.The patient tolerated the procedure well and there were no immediatecomplications.Fluoroscopic images are performed with last image hold technology. Theseimages require no additional radiation to acquire.Fluoroscopy time was 9 seconds at 3 pulses/second. This is equal to 2.75seconds continuous fluoroscopy time which is a 75% reduction in radiation.Dictated by SHEREEN Loredo, with Dr. Jarrett.RANDI Snyder/Adriane you for referring TOYA AWLLS to our office. Electronically Signed - DANIELA JARRETT DO 01/02/20 16:59 Name Value Range Interpretation Code Description Data Farrah rce(s) Supporting Document(s) ID Date Data Source [id number] 01/02/2020 12:00:00 AM EDT [facility] [place] Patient Name: TOYA [id number] [facility] Date of : 1960[place] [address] Date of Exam: 01/02/2020#: Fax: [phone] EXAM: ARTHROCENTESIS OF LARGE JOINT W/O USCLINICAL INFORMATION: Osteoarthritis of the right hipThe procedure was performed by SHEREEN Loredo, under the directsupervision of Dr. Jarrett.The benefits and risks including but not limited to pain, infection,bleeding and anaphylaxis were explained to the patient as well as thepotential therapeutic benefits of the procedure and the possibility of anunsuccessful procedure, and an informed consent was obtained. Directlyprior to the start of the procedure, a formal time-out was completed.The right femoral neck joint space was localized using fluoroscopicguidance. The skin was prepped and draped in a sterile fashion.Approximately 5 cc of 1% Lidocaine 10 mg/ml was used as a local anesthetic. Using fluoroscopic guidance, a #22 gauge spinal needle was inserted andadvanced into the right femoral neck joint space. Approximately 1 cc ofOmnipaque 300 mg/ml was injected to verify placement. A 6 cc solutioncontaining 5 cc of 1% Lidocaine 10 mg/ml and 1 cc of Kenalog 40 mg/ml wasinjected into the joint space. The needle was then removed.The patient tolerated the procedure well and there were no immediatecomplications.Fluoroscopic images are performed with last image hold technology. Theseimages require no additional radiation to acquire.Fluoroscopy time was 9 seconds at 3 pulses/second. This is equal to 2.75seconds continuous fluoroscopy time which is a 75% reduction in radiation.Dictated by Tamiko Hanna, [facility], with Dr. Jarrett.Daniela Jarrett, RANDI/Adriane you for referring TOYA WALLS to our office. Electronically Signed - DANIELA JARRETT DO 01/02/20 16:59 Name Value Range Interpretation Code Description Data Farrah rce(s) Supporting Document(s) ID Date Data Source [id number] 2019 12:00:00 AM EDT [facility] [place] Patient Name: TOYA [id number] [facility] Date of : 1960 2 [facility] [id number]#: Fax: [phone] EXAM: MRI RIGHT HIP ARTHROGRAMCLINICAL INFORMATION: Chronic pain.Pre and post contrast 3T MRI of the right hip with hip MRI arthrography wasperformed utilizing various sequences. The hip joint injection wasperformed by Tamiko Hanna, SHEREEN.There are no prior right hip MRI's for comparison.Motion artifact is seen throughout the exam which decreases the imagedetail.There is bilateral femoral head marginal osteophytosis, right much greaterthan left. There is a right hip joint effusion. T2 hypersignal is seen inthe trochanteric tendinobursal region of each hip, right somewhat greaterthan left. There is subchondral T2 hypersignal seen in the superolateralright acetabulum. There is acetabular marginal osteophytosis on the right. Mild T2 hypersignal is seen in the musculotendinous junction of theobturator externus on the right. The imaged portion of the sacroiliacjoints show them to be within normal limits. The cortical and marrowsignal throughout the remainder of the exam is within normal limits. Thereis no evidence of a mass or mass effect.Magnified small xbcmd-nq-gtvf pre and post hip injection images shownon-linear T2 hypersignal changes in the labrum with some labralirregularity and possible fraying. This is difficult to evaluate due tothe motion artifact.IMPRESSION:1. There are labral degenerative changes on the right consistent withmyxoid degenerative change. I see no discrete tear.2. Bilateral hip degenerative changes, right much greater than left, asdescribed above.3. Right hip joint effusion.4. Bilateral trochanteric tendinobursitis, right greater than left.5. Mild right obturator externus musculotendinous edema, correlateclinically.6. Right acetabular subchondral edema, likely secondary to repeatedmicrotrauma from degenerative changes.7. Bilateral asymmetric hip joint space narrowing which azsrhtayko-fl-zjpvbe on the right and wnou-dh-skexpwfi on the left.8. Other findings as described above.Accredited by the [employer] in MR.RANDI Snyder/Adriane you for referring TOYA WALLS to our office. Electronically Signed - DANIELA JARRETT DO 12/25/19 13:43 Name Value Range Interpretation Code Description Data Farrah rce(s) Supporting Document(s) ID Date Data Source [id number] 2019 12:00:00 AM EDT [facility] [place] Patient Name: TOYA WALLS15[address] [facility] Date of : 1960 2 Date of Exam: 2019DONNIE Ricks [id number]#: Fax: [phone] EXAM: HIP ARTHROGRAM WITH INJECTIONCLINICAL INFORMATION: Primary osteoarthritis of the right hip.The procedure was performed by SHEREEN Loredo, under the directsupervision of Dr. Jarrett.The benefits and risks including but not limited to pain, infection,bleeding and anaphylaxis were explained to the patient as well as thepossibility of an unsuccessful procedure, and an informed consent wasobtained. Directly prior to the start of the procedure, a formal time-outwas completed.The right femoral neck joint space was localized using fluoroscopicguidance. The skin was prepped and draped in a sterile fashion.Approximately 3 cc of 1% Lidocaine 10 mg/ml was used as a local anesthetic. Using fluoroscopic guidance, a #22 gauge spinal needle was inserted andadvanced into the right femoral neck joint space. Approximately 1 cc ofOmnipaque 300 mg/ml was injected to verify placement. 12 cc of a solutioncontaining 20 cc of sterile saline and 0.15 cc of ProHance was injectedinto the joint space. The needle was removed and the patient was taken toMRI for post procedural imaging.The patient tolerated the procedure well and there were no immediatecomplications.Fluoroscopic images are performed with last image hold technology. Theseimages require no additional radiation to acquire.Fluoroscopy time was 14 seconds at 3 pulses/second. This is equal to 3.5seconds continuous fluoroscopy time which is a 75% reduction in radiation.Dictated by SHEREEN Loredo, with Dr. Jarrett.RANDI Snyder/Adriane mercedes for referring TOYA WALLS to our office. Electronically Signed - DANIELA JARRETT DO 12/24/19 16:35 Name Value Range Interpretation Code Description Data Farrah rce(s) Supporting Document(s) ID Date Data Source [id number] 09/22/2019 12:00:00 AM EST [facility] [place] Patient Name: TOYA WALLS15[address] [facility] Date of : 1960 Date of Exam: [facility] [place] [place] [address]#: Fax: [phone] EXAM: ARTHROCENTESIS RTHIP-ASPIR / INJ STEROID/PAIN MEDSCLINICAL INFORMATION: Unilateral primary osteoarthritis of the right hip.The procedure was performed by SHEREEN Loredo, under the directsupervision of Dr. Rose.The benefits and risks including but not limited to pain, infection,bleeding and anaphylaxis were explained to the patient as well as thepotential therapeutic benefits of the procedure and the possibility of anunsuccessful procedure, and an informed consent was obtained. Directlyprior to the start of the procedure, a formal time-out was completed.The right femoral neck joint space was localized using fluoroscopicguidance. The skin was prepped and draped in a sterile fashion.Approximately 5 cc of 1% Lidocaine 10 mg/ml was used as a local anesthetic. Using fluoroscopic guidance, a #22 gauge spinal needle was inserted andadvanced into the right femoral neck joint space. Approximately 1 cc ofOmnipaque 300 mg/ml was injected to verify placement. A 6 cc solutioncontaining 5 cc of 1% Lidocaine 10 mg/ml and 1 cc of Kenalog 40 mg/ml wasinjected into the joint space. The needle was then removed.The patient tolerated the procedure well and there were no immediatecomplications.Fluoroscopic images are performed with last image hold technology. Theseimages require no additional radiation to acquire.Fluoroscopy time was 9 seconds at 3 pulses/second. This is equal to 2.25seconds continuous fluoroscopy time which is a 75% reduction in radiation.Dictated by Tamiko Hanna, SHEREEN, with Dr. Rose.Edi Rose, RICARDO/Adriane you for referring TOYA WALLS to our office. Electronically Signed - EDI ROSE MD 09/23/19 15:18 Name Value Range Interpretation Code Description Data Farrah rce(s) Supporting Document(s) ID Date Data Source [id number] 09/22/2019 12:00:00 AM [facility] [place] Patient Name: PRAVEEN WALLS [facility] Date of : 1960 2 Date of Exam: [facility]2019[facility] [id number]#: Fax: [phone] EXAM: ARTHROCENTESIS RTHIP-ASPIR / INJ STEROID/PAIN MEDSCLINICAL INFORMATION: Unilateral primary osteoarthritis of the right hip.The procedure was performed by SHEREEN Loredo, under the directsupervision of Dr. Rose.The benefits and risks including but not limited to pain, infection,bleeding and anaphylaxis were explained to the patient as well as thepotential therapeutic benefits of the procedure and the possibility of anunsuccessful procedure, and an informed consent was obtained. Directlyprior to the start of the procedure, a formal time-out was completed.The right femoral neck joint space was localized using fluoroscopicguidance. The skin was prepped and draped in a sterile fashion.Approximately 5 cc of 1% Lidocaine 10 mg/ml was used as a local anesthetic. Using fluoroscopic guidance, a #22 gauge spinal needle was inserted andadvanced into the right femoral neck joint space. Approximately 1 cc ofOmnipaque 300 mg/ml was injected to verify placement. A 6 cc solutioncontaining 5 cc of 1% Lidocaine 10 mg/ml and 1 cc of Kenalog 40 mg/ml wasinjected into the joint space. The needle was then removed.The patient tolerated the procedure well and there were no immediatecomplications.Fluoroscopic images are performed with last image hold technology. Theseimages require no additional radiation to acquire.Fluoroscopy time was 9 seconds at 3 pulses/second. This is equal to 2.25seconds continuous fluoroscopy time which is a 75% reduction in radiation.Dictated by Tamiko Hanna [facility], with Dr. Rose.Edi Rose, RICARDO/Adriane you for referring TOYA WALLS to our office. Electronically Signed - EDI ROSE MD 09/23/19 15:18 Name Value Range Interpretation Code Description Data Farrah rce(s) Supporting Document(s) Procedure Social History Code Duration Value Status Description Data Source(s ) Smoking 08/17/2020 12:00:00 AM EST Current Smoker completed Curre nt Smoker eCW1 ([facility]ly [facility]) Smoking 08/17/2020 12:00:00 AM EST Current Smoker completed Curre nt Smoker eCW1 (Formerly [facility]) Smoking 07/06/2020 12:00:00 AM EST Current Smoker completed Curre nt Smoker eCW1 ([facility]ly [facility]) Smoking 07/06/2020 12:00:00 AM EST Current Smoker completed Curre nt Smoker eCW1 ([facility]ly [facility]) Smoking 07/06/2020 12:00:00 AM EST Current Smoker completed Curre nt Smoker eCW1 ([facility]ly [facility]) Smoking 02/27/2020 12:00:00 AM EDT Current Smoker completed Curre nt Smoker eCW1 ([facility]ly [facility]) Smoking 02/27/2020 12:00:00 AM EDT Current Smoker completed Curre nt Smoker eCW1 ([facility]) Smoking 02/27/2020 12:00:00 AM EDT Current Smoker completed Curre nt Smoker eCW1 ([facility]ly [facility]) Smoking 01/23/2020 12:00:00 AM EDT Current Smoker completed Curre nt Smoker eCW1 ([facility]ly [facility]) Smoking 01/23/2020 12:00:00 AM EDT Current Smoker completed Curre nt Smoker eCW1 ([facility]ly [facility]) Vital Signs ID Date Data Source UNK Name Value Range Interpretation Code Description Data Source(s) Respiratory rate 19 /min 19 /min MEDENT ( [facility]) Body mass index (BMI) [Ratio] 42.6 kg/m2 42.6 k g/m2 MEDENT ([facility]) Body weight 231.00 [lb_av] 231.00 [lb_av] MEDEN T ([facility]) Body height 61.75 [in_i] 61.75 [in_i] MEDENT ([facility]) 5'1.75" Body temperature 96.8 [degF] 96.8 [degF] MEDENT ([facility]) Heart rate 89 /min 89 /min [facility] Diastolic blood pressure 94 mm[Hg] 94 mm[Hg] MEDENT ([facility]) Systolic blood pressure 136 mm[Hg] 136 mm[Hg] M EDENT ([facility]) Diastolic blood pressure 84 mm[Hg] 84 mm[Hg] eCW1 ([facility]) Systolic blood pressure 126 mm[Hg] 126 mm[Hg] e CW1 ([facility]) Body temperature 97.9 [degF] 97.9 [degF] eCW1 ( [facility]) Respiratory rate 17 /min 17 /min eCW1 ([facility]) Heart rate 104 /min 104 /min eCW1 ([facility]) Body mass index (BMI) [Ratio] 39.68 kg/m2 39.68 kg/m2 eCW1 ([facility]) Body height 63 [in_i] 63 [in_i] eCW1 ([facility]) Body weight 224 [lb_av] 224 [lb_av] eCW1 ([facility]) Body mass index (BMI) [Ratio] 39.0 kg/m2 39.0 k g/m2 MEDENT ([facility]) Body weight 220.00 [lb_av] 220.00 [lb_av] MEDEN T ([facility]) Body height 63 [in_i] 63 [in_i] MEDENT ([facility]) 5'3" Body temperature 97.5 [degF] 97.5 [degF] MEDENT ([facility] ) Diastolic blood pressure 84 mm[Hg] 84 mm[Hg] eCW1 ([facility]) Systolic blood pressure 130 mm[Hg] 130 mm[Hg] e CW1 ([facility]) Body temperature 97.3 [degF] 97.3 [degF] eCW1 ( [facility]) Respiratory rate 19 /min 19 /min eCW1 ([facility]) Heart rate 117 /min 117 /min eCW1 ([facility]) Body mass index (BMI) [Ratio] 40.56 kg/m2 40.56 kg/m2 eCW1 ([facility]) Body height 63 [in_i] 63 [in_i] eCW1 ([facility]) Body weight 229 [lb_av] 229 [lb_av] eCW1 ([facility]) Body mass index (BMI) [Ratio] 41.1 kg/m2 41.1 k g/m2 MEDENT ([facility]) Body weight 232.00 [lb_av] 232.00 [lb_av] MEDEN T ([facility]) Body height 63 [in_i] 63 [in_i] MEDENT ([facility]) 5'3" Body temperature 97.1 [degF] 97.1 [degF] MEDENT ([facility]) Diastolic blood pressure 80 mm[Hg] 80 mm[Hg] eCW1 ([facility]) Systolic blood pressure 122 mm[Hg] 122 mm[Hg] e CW1 ([facility]) Body mass index (BMI) [Ratio] 41.06 kg/m2 41.06 kg/m2 W1 ([facility]) Body height 63 [in_i] 63 [in_i] eCW1 ([facility]) Body weight 231.8 [lb_av] 231.8 [lb_av] eCW1 ([facility]) Diastolic blood pressure 80 mm[Hg] 80 mm[Hg] eCW1 ([facility]) Systolic blood pressure 122 mm[Hg] 122 mm[Hg] e CW1 ([facility]) Body temperature 97.1 [degF] 97.1 [degF] eCW1 ( [facility]) Respiratory rate 20 /min 20 /min eCW1 ([facility]) Heart rate 101 /min 101 /min eCW1 ([facility]) Body mass index (BMI) [Ratio] 41.55 kg/m2 41.55 kg/m2 W1 ([facility]) Body height 63 [in_i] 63 [in_i] eCW1 ([facility]) Body weight 234.6 [lb_av] 234.6 [lb_av] eCW1 ([facility]) Diastolic blood pressure 72 mm[Hg] 72 mm[Hg] eCW1 ([facility]) Systolic blood pressure 116 mm[Hg] 116 mm[Hg] e CW1 ([facility]) Body mass index (BMI) [Ratio] 39.82 kg/m2 39.82 kg/m2 eCW1 ([facility]) Body height 63 [in_us] 63 [in_us] eCW1 ([facility]) Body weight Measured 224.8 [lb_av] 224.8 [lb_av ] eCW1 ([facility]) Diastolic blood pressure 68 mm[Hg] 68 mm[Hg] eCW1 ([facility]) Systolic blood pressure 118 mm[Hg] 118 mm[Hg] e CW1 ([facility]) Body mass index (BMI) [Ratio] 38.97 kg/m2 38.97 kg/m2 eCW1 ([facility]) Body height 63 [in_us] 63 [in_us] eCW1 ([facility]) Body weight Measured 220 [lb_av] 220 [lb_av] eC W1 ([facility]) Diastolic blood pressure 70 mm[Hg] 70 mm[Hg] eCW1 ([facility]) Systolic blood pressure 120 mm[Hg] 120 mm[Hg] e CW1 ([facility]) Body temperature 97.7 [degF] 97.7 [degF] eCW1 ( [facility]) Respiratory rate 20 /min 20 /min eCW1 ([facility]) Heart rate 84 /min 84 /min eCW1 ([facility]) Body mass index (BMI) [Ratio] 38.97 kg/m2 38.97 kg/m2 eCW1 ([facility]) Body height 63 [in_us] 63 [in_us] eCW1 ([facility]) Body weight Measured 220 [lb_av] 220 [lb_av] eC W1 ([facility]) Diastolic blood pressure 82 mm[Hg] 82 mm[Hg] eCW1 ([facility]) Systolic blood pressure 126 mm[Hg] 126 mm[Hg] e CW1 ([facility]) Body mass index (BMI) [Ratio] 39.85 kg/m2 39.85 kg/m2 eCW1 ([facility]) Body height 63 [in_us] 63 [in_us] eCW1 ([facility]) Body weight Measured 225 [lb_av] 225 [lb_av] eC W1 ([facility]) Patient Treatment Plan of Care Planned Activity Planned Date Details Description Data Source (s) Acetaminophen 300 MG / Codeine Phosphate 60 MG Oral Ta blet 07/09/2020 12:00:00 AM EST eCW1 ([facility]) Physical Therapy evaluate and treat 11/06/2019 12:00:00 AM EDT eCW1 ([facility]) Senna 8.6 MG 09/23/2019 12:00:00 AM EST e CW1 ([facility]) Polyethylene Glycol - 09/23/2019 12:00:00 AM EST eCW1 ([facility])
--- OUTSIDE RECORDS SUMMARY | 2020-10-01 06:29 | CCD ---
Author Author [facility] Organization [facility] Address Unknown Phone Unavailable Care Team Providers Care Fire Hazard Inspector Name Role Phone Mami Desai Unavailable PROBLEMS Type Condition ICD9-CM Code OLN17-QE Code Onset Dates Condition S tatus SNOMED Code Notes Problem Family history of breast cancer Z80.3 Active 003027612 Problem Primary osteoarthritis of right hip M16.11 Acti ve 290439920303286 Problem Lumbago with sciatica, right side M54.41 Active 537023255 Problem Other chronic pain G89.29 Active 03642300 Problem Situational mixed anxiety and depressive disorder F43.23 Active 214532668 Problem Vaginal cyst N89.8 Active 55430446 ALLERGIES Allergen (clinical drug ingredient) Drug/Non Drug Allergy do cumented on EMR Reaction Allergy Type Onset Date Status codeine Codeine Sulfate[place] [place] Code:[address]-36) Nausea/Vomiting Dr ug Allergy Active aspirin Aspirin([facility] [place] Code:[address]-99) belly pain Drug Allergy Active ENCOUNTERS from 1962 to 2020-07-08 Encounter Location Date Provider Diagnosis [facility] [address] [place] [address] Feb, Mami Desai Vaginal cyst N89.8 a nd Cigarette nicotine dependence without complication F17.210 IMMUNIZATIONS Vaccine Route Administration Date Status Influenza [...] Education Language: Question Answer Notes Languages spoken: Arabic Scientology: Question Answer Notes Scientology 33 None Domestic Violence: Question Answer Notes [...] FOR REFERRAL No Information VITAL SIGNS Weight 231.8 lbs Feb, Height 63 in Feb, BMI 41.06 kg/m2 Feb, Blood pressure systolic 122 mm Hg Feb, Blood pressure diastolic 80 mm Hg Feb, MEDICATIONS Medication SIG (Take, Route, Frequency, Duration) [...] Information RESULTS No Results REASON FOR VISIT PRE OP SURG 03/03/20 MEDICAL (GENERAL) HISTORY Type Description Date Medical [...] Notes Treatment Notes Treatm ent Clinical Notes Feb, Vaginal cyst (ICD-10 - N89.8) Pre-Operative CounselingProcedure: vaginal cyst removal Surgeon: Mami Desai MD Patient has been counseling regarding the risks of the procedure to include anesthesia risks to include , bleeding/need for blood transfusion, infection, damage to internal organs,and postoperative pain and need for future surgery based on findings. She understands these risks and wishes to proceed with the above Feb, Cigarette nicotine dependenc e without complication (ICD-10 - F17.210) PLAN OF TREATMENT Treatment Notes Assessment Notes Clinical Notes Vaginal cyst Pre-Operative Counse lingProcedure: vaginal cyst removal Surgeon: BRYON Alvaradoatient has been counseling regarding the risks of the procedure to include anesthesia risks to include , bleeding/need for blood transfusion, infection, damage to internal organs,and postoperative pain and need for future surgery based on findings. She understands these risks and wishes to proceed with the above Next Appt Details Provider Name:Jamie Connollylowell, 2020-08-17 01 :00:00 PM, [address] [facility], [place], [address], Insurance Providers Payer Name Payer Address Payer Phone Insured Name Patient Relati onship to Insured Coverage Start Date Coverage End Date [facility] [address] [facility] [id number] TOYA WALLS self
[2020-10-01] MEDS ORDERED: ACET1TAB16 PO (06:40)
[2020-10-01] MEDS ORDERED: ceFAZolin SOD 2 GM in IV 1 EA IV ONE (07:00)
[2020-10-01] MEDS ORDERED: LR 1,000 ML IV ONE (07:00)
[2020-10-01] MEDS ORDERED: NICO14DI24 TOP (07:01)
[2020-10-01] MEDS ORDERED: BUPIVACAINE HCL 0.25% 10ML VIAL As Ordered ONE (07:10)
[2020-10-01] MEDS ORDERED: propofoL 200 MG/20 ML VIAL As Ordered ONE ×3 (07:10→08:52)
[2020-10-01] MEDS ORDERED: LIDOCAINE 2% 100MG/5ML SDV (FOR ANES.) As Ordered ONE (07:10)
[2020-10-01] MEDS ORDERED: TRANEXAMIC ACID 100 MG/ML 10ML VIAL As Ordered ONE (07:10)
[2020-10-01] MEDS ORDERED: ceFAZolin 1GM VIAL (J0690 PER 500MG) As Ordered ONE (07:11)
[2020-10-01] MEDS ORDERED: fentaNYL 100 MCG/2 ML INJECTION (J3010) As Ordered ONE (07:11)
[2020-10-01] MEDS ORDERED: BUPIVACAINE LIPOSOME/PF 1.3% 20ML VIAL (13.3MG/ML)(EXPAREL)(C9290 PER1MG) As Ordered ONE (07:11)
[2020-10-01] MEDS ORDERED: MIDAZOLAM INJ 2MG/2ML VIAL (J2250 PER 1MG) As Ordered ONE ×2 (07:11→08:25)
[2020-10-01] MEDS ORDERED: EPINEPHrine INJ 1 MG/ML 1ML AMP As Ordered ONE (07:11)
[2020-10-01] MEDS ORDERED: ePHEDrine SULFATE 25 MG/5 ML(5MG/ML) SYRINGE As Ordered ONE (08:08)
[2020-10-01] MEDS ORDERED: PHENYLephrine 500MCG 5ML (100MCG/ML) SYRINGE As Ordered ONE ×2 (08:18→08:46)
--- NOTE | 2020-10-01 08:34 | IPN ---
PROGRESS NOTE DATE: 10/01/2020 SUBJECTIVE AND PLAN: Patient seen and examined. She wishes to go ahead with a right total hip arthroplasty. She understands the nature of this, the risks of bleeding, infection, damage to nerves and vessels, persistent pain, carmona loosening, dislocation, leg length inequality, blood clots, medical problems, among others. She understands she is at higher risk due to her morbid obesity. Her BMI is roughly 39.
[2020-10-01] MEDS ORDERED: PERCOCET 5MG/325MG TAB PO PRN (10:00)
[2020-10-01] MEDS ORDERED: ONDANSETRON 4MG/2ML VIAL IV PRN (10:00)
[2020-10-01] MEDS ORDERED: LR 1,000 ML IV SCH ×2 (10:00)
[2020-10-01] MEDS ORDERED: ACETAMINOPHEN TAB 650MG DOSE (2X325MG) PO PRN (10:00)
[2020-10-01] MEDS ORDERED: MORPHINE 4 MG/ML 1ML VIAL/SYRINGE (J2270) IV PRN (10:00)
[2020-10-01] MEDS ORDERED: fentaNYL 100 MCG/2 ML INJECTION (J3010) IV PRN (10:00)
--- NOTE | 2020-10-01 10:08 | REP ---
INDICATION: POST OP IN PACU. COMPARISON: None. TECHNIQUE: Two views right hip. FINDINGS: Total hip prosthesis in place and in good position. Osseous structures are well aligned. Metallic skin bishop are seen laterally. IMPRESSION: Right total hip arthroplasty in good position. <Electronically signed by Edi Rose > 10/01/20 1001
[2020-10-01] MEDS: HYDROMORPHONE HCL 0.5 MG/ 0.5 ML SYRINGE (J1170 PER 1) IV PRN ×4 (10:17→10:40)
[2020-10-01] MEDS: PERCOCET 5MG/325MG TAB PO PRN ×2 (10:44→15:44)
[2020-10-01] MEDS ORDERED: oxyCODONE 5MG TAB PO PRN (10:45)
[2020-10-01] MEDS: MORPHINE 2 MG/ML 1ML VIAL (J2270) IV PRN ×2 (11:48→13:53)
--- NOTE | 2020-10-01 12:19 | RO ---
OPERATIVE NOTE DATE OF OPERATION: 10/01/2020 PREOPERATIVE DIAGNOSIS: Right hip osteoarthritis, morbid obesity. POSTOPERATIVE DIAGNOSIS: Right hip osteoarthritis, morbid obesity. PROCEDURE: Right total hip arthroplasty using a [place] size 4 high offset, 32 ceramic head, 1.5 neck, size 50 acetabular component with a polyethylene liner. SURGEON: Sumit Avendano M.D. MESH MAN: ASHANTI Hughes ANESTHESIA: Spinal. ESTIMATED BLOOD LOSS: 300 COMPLICATIONS: None. PROCEDURE: The patient was taken to the operating room and placed in the left lateral decubitus position on a [place] positioner. All areas were padded appropriately. The right hip was prepped and draped in the usual sterile fashion. A timeout was performed and a longitudinal incision was made over the lateral aspect of the hip. Sharp dissection was carried out down through the copious subcutaneous tissue until I was able to identify the fascia. This was incised longitudinally and then I divided the anterior 40% of the abductors off the anterior aspect of the femur. This was quite challenging given the depth of the wound and the amount of adipose tissue. I then dislocated the hip, used the canal initiating reamer, the canal finding reamer, the lateralizing reamer, the lateralizing reamer and then sequentially reamed up to between a 4 and a 5 and made the neck cut at about half a fingerbreadth up from the lesser trochanter. The head was removed. It was severely arthritic. We then directed our attention to the acetabulum. Anterior and posterior retractors were placed. I removed the soft tissue from around the acetabulum. This was quite challenging given the depth of the wound. She had a fairly small acetabulum. I was able to ream to a 49 which had good concentric reaming, good bleeding bone and I was able to medialize it some. I then irrigated and packed in a size 50 cup in the appropriate amount of anteversion and horizontal tilt. There were some minimal posterior osteophytes but overall it matched the patient's anteversion quite well. I then inserted the polyethylene liner, 50 x 32, impacted this in place, made it was well seated and then we directed out attention back to the femur. I used the Inforie cutter to remove proximal bone and then sequentially broached up to a size 4 which was slightly proud. I was not able to get any larger than that. It was a solid fit and excellent proximal fill. We trialed off this with a high offset because it was closer to here natural anatomy and a +1.5 neck, a 32 ball and overall I was really quite pleased with that. The hip was put through a range of motion. There was minimal shuck in full extension. There was excellent stability in extension, external rotation and flexion, internal rotation. There was no impingement noted. I then irrigated the canal, placed the actual stem, size 4 [place] high offset, impacted it in place, dried the taper, placed the ceramic +1.5, 32 ball, impacted this in place and then we reduced the hip. The hip was put through a range of motion. There was excellent stability, minimal shuck, appropriate soft tissue tension. We then did deep copious irrigation and added TXA to the wound. I had controlled hemostasis with the cautery throughout. I then repaired the minimus and abductor with #1 Vicryl suture. An excellent repair was noted. The fascia was closed with #1 Vicryl suture and running Stratafix. I placed Exparel in the deep tissues at this point. We then closed the subcu in layers. I used a running Stratafix in the subcu layer deeper to close the space. The subcu was closed with 2-0 Vicryl and the skin with bishop. A sterile dressing was applied and she was taken to the recovery room in stable condition. There were no known complications. This was coded as an unusually difficult procedure due to the patient's morbid obesity with a BMI of at least 39 with significant subcutaneous tissue. This added to the duration of the case and significantly added to the difficulty in exposure and cleaning out the acetabulum, reaming, etc. It also added to the time and wound closure. The medical practice assistant was instrumental in holding retractors and assisting in reducing and dislocating the hip and assisting in wound closure.
[2020-10-01] MEDS: ONDANSETRON 4MG/2ML VIAL IV PRN ×2 (13:53→19:50)
[2020-10-01] MEDS ORDERED: NICOTINE 14 MG/24 HR TRANSDERMAL TD PRN (14:15)
--- NOTE | 2020-10-01 15:14 | CR.PDOC ---
General Date of Consultation: Oct 01, 2020 Consultation REASON FOR CONSULTATION/CHIEF COMPLAINT: Right hip surgery HISTORY OF PRESENT ILLNESS: Patient is 59 years old female with past history of osteoarthritis, chronic pain presented hospital for elective right hip surgery. Today surgery was done patient tolerates procedure well. Patient denied fever, chills, chest pain, palpitations, nausea, vomiting, diarrhea or dysuria ALLERGIES: Please see below. HOME MEDICATIONS: Please see below. PAST MEDICAL HISTORY: Chronic pain, was arthritis PAST SURGICAL HISTORY: section, tubal ligation, colonoscopy. FAMILY HISTORY: I personally reviewed family history and found not percent SOCIAL HISTORY: Tobacco use: Active smoker ETOH: Denied Illicit drug use: Denied REVIEW OF SYSTEMS: 10 point review system negative except as listed above PHYSICAL EXAMINATION: VITAL SIGNS: Please see below. Objective: GENERAL APPEARANCE: Obese female HEENT: no scleral icterus, no JVD, EOMI CARDIOVASCULAR: S1S2 LUNGS: CTA ABDOMEN: soft & not tender w palpitation MUSCULOSKELETAL: Mild tenderness over right hip, pulsation preserved INTEGUMENT: no generalized pallor NEUROLOGICAL: cranial nerve function from 2-12 intact intact, follows commands, speech not dysarthric LABORATORY DATA: Please see below. ASSESSMENT/PLAN: Status post right hip replacement/osteoarthritis Pain medications Anticoagulation per orthopedic team Incentive spirometry Morbid obesity Complicated care Vital Signs/I&O Vital Signs Date Time Temp Pulse Resp B/P (MAP) Pulse Ox O2 Delivery O2 Flow Rate FiO2 10/01/20 14:30 96.8 75 18 117/68 (84) 97 Nasal Cannula 2.0 Allergies Coded Allergies: shellfish derived (Verified Allergy, Intermediate, HIVES, 02/25/20) aspirin (Verified Adverse Reaction, Intermediate, STOMACH UPSET/BURNING, 02/25/20) Home Medications Scheduled Gabapentin (Gabapentin) 600 Mg Tablet, 600 MG PO TID, (Reported) Ibuprofen (Ibuprofen) 800 Mg Tablet, 800 MG PO BIDP for PAIN, (Reported) Meloxicam (Meloxicam) 15 Mg Tablet, 15 MG PO DAILY, (Reported) Nicotine (Nicotine Patch) 14 Mg Patch.td24, 1 PATCH TOP DAILY, (Reported) Scheduled PRN Acetaminophen with Codeine (Acetaminophen-Cod #3 Tablet) 1 Each Tablet, 1 TAB PO Q6H PRN for PAIN, #20 (Reported) MDD = 4 Cyclobenzaprine HCl (Cyclobenzaprine HCl) 5 Mg Tablet, 5 MG PO Q8H PRN for NECK PAIN for 5 Days, #15 (Reported) Docusate Sodium (Docusate Sodium) 100 Mg Capsule, 100 MG PO BIDP PRN for CONSTIPATION, (Reported) GONZÁLEZ ROQUE DO Oct 01, 2020 15:14
[2020-10-01] MEDS ORDERED: DOCUSATE SODIUM 100MG CAPSULE PO PRN (15:15)
[2020-10-01] MEDS ORDERED: CYCLOBENZAPRINE 5MG TABLET PO PRN (15:15)
[2020-10-01] MEDS ORDERED: IBUPROFEN 800 MG TAB PO PRN (15:15)
[2020-10-01] MEDS ORDERED: GABAPENTIN 300 MG CAP PO SCH (16:00)
[2020-10-01] MEDS: ceFAZolin SOD 2 GM in IV 1 EA IV SCH ×2 (16:32→22:45)
[2020-10-02 00:30] VITALS: BP 117/77
[2020-10-02 02:00] VITALS: BP 118/75
[2020-10-02 06:00] VITALS: BP 127/78
[2020-10-02] MEDS ORDERED: XARE10TA PO (06:31)
[2020-10-02] MEDS ORDERED: PERC5TAB12 PO (06:31)
[2020-10-02 07:16] LABS: HEMATOCRIT 33.6 % (36.0-47.0); HEMOGLOBIN 11.5 g/dl (12.0-15.5); MEAN CORPUSCULAR HEMOGLOBIN 34.4 pg (27.0-33.0); MEAN CORPUSCULAR HGB CONC 34.2 g/dl (32.0-36.5); MEAN CORPUSCULAR VOLUME 100.6 fl (80.0-96.0); PLATELET COUNT, AUTOMATED 200 10^3/uL (150-450); RED BLOOD COUNT 3.34 10^6/uL (4.00-5.40); WHITE BLOOD COUNT 9.7 10^3/uL (4.0-10.0)
[2020-10-02] MEDS: PERCOCET 5MG/325MG TAB PO PRN (07:45)
[2020-10-02] MEDS ORDERED: MOM 30ML SUSPENSION UDC PO SCH (09:00)
[2020-10-02] MEDS ORDERED: IBUPROFEN 800 MG TAB PO ONE (09:00)
[2020-10-02] MEDS ORDERED: MIRALAX *UNIT DOSE* 17GM PACKET PO SCH (09:00)
[2020-10-02] MEDS ORDERED: RIVAROXABAN 10 MG TAB (XARELTO) PO SCH (18:00)
--- NOTE | 2020-10-04 11:09 | DSES ---
DISCHARGE SUMMARY DATE OF ADMISSION: 10/01/2020 DATE OF DISCHARGE: 10/02/2020 ADMITTING DIAGNOSIS: Osteoarthritis right hip. OTHER DIAGNOSIS: Chronic pain. DISCHARGE DIAGNOSIS: Osteoarthritis right hip status post right total hip arthroplasty. OPERATION PERFORMED: Right total hip arthroplasty. HISTORY: This is a 59-year-old female patient with progressively worsening right hip pain and stiffness. She failed to improve with conservative management. She elected for surgery for continued symptoms. HOPSITAL COURSE: The patient was admitted on the day of surgery, underwent the right total hip arthroplasty, which was uneventful. She did well in the postoperative period and her hospital course was without complications. She was up with physical therapy per their protocol. Her pain was controlled. On day of discharge, she was weightbearing as tolerated on her right lower extremity. She will use thromboembolism deterrent (NICOLE) stockings for 30 days postoperatively for deep venous thrombosis (DVT) prophylaxis. She will also use Xarelto 10 mg per the protocol for DVT prophylaxis as well. She will resume her preoperative medications and diet. She will use oral pain medications for pain control. She will follow up in our office in 10-14 days for surgical follow up. She was given instructions to include, but not limited to, wound monitoring, activity limitations. Please refer to the medical record for further details.
== END 2020-10-02 12:25 | disposition home or self-care (01) | DRG 301 ==
LOC: M OR 06:19 → M MS5PR 12:05
PROVIDERS: ADMIT Orthopaedic Surgery; ATTEND Orthopaedic Surgery
PROC: 0SR90JA Replacement of Right Hip Joint with Synthetic Substitute, Uncemented, Open Approach (ICD-10-PCS; principal; 2020-10-01 07:30)
DX: M16.11 Unilateral primary osteoarthritis, right hip (principal); E66.01 Morbid (severe) obesity due to excess calories; Z68.39 Body mass index [BMI] 39.0-39.9, adult; Z79.899 Other long term (current) drug therapy; F17.200 Nicotine dependence, unspecified, uncomplicated; Z91.013 Allergy to seafood; Z88.6 Allergy status to analgesic agent

== ENCOUNTER → 2020-11-08 | Outpatient (REF) | payer OTHER ==
[~2020-11-08] MED LIST changes: +ACET1TAB16 PO; +NICO14DI24 TOP; +PERC5TAB12 PO; +XARE10TA PO
== END ==
LOC: M SFHCPLAZ 13:32
PROVIDERS: ATTEND Family Medicine
DX: Z13.220 Encounter for screening for lipoid disorders (principal); Z13.1 Encounter for screening for diabetes mellitus

== ENCOUNTER → 2020-11-09 | Outpatient (REF) | payer OTHER ==
[2020-11-09 15:48] LABS: CHOLESTEROL RISK RATIO 5.113 (<5)
== END ==
LOC: M SFHCPLAZ 13:56
PROVIDERS: ATTEND Family Medicine
DX: Z13.220 Encounter for screening for lipoid disorders (principal); Z13.1 Encounter for screening for diabetes mellitus

== ENCOUNTER → 2020-12-29 | Outpatient (CLI) | payer OTHER ==
[~2020-12-29] MED LIST changes: +GABA-283 PO; -GABA-845 PO
--- NOTE | 2020-12-29 14:13 | REPVR ---
PROCEDURE INFORMATION: Exam: MR Lumbar Spine Without Contrast Exam date and time: 12/29/2020 11:36 AM Age: 60 years old Clinical indication: Pain; Lumbago and sciatica; Bilateral; Additional info: Lumbago with sciatica TECHNIQUE: Imaging protocol: Multiplanar magnetic resonance images of the lumbar spine without intravenous contrast. COMPARISON: No relevant prior studies available. FINDINGS: Vertebrae: No acute compression fracture is seen. There is 7 mm of anterolisthesis of L4 on L5 due to severe facet arthropathy. Minimal retrolisthesis of L1 on L2 is present. Spinal cord: The conus medullaris terminates at the L1 level. Cauda equina compression is present at L4-L5. L1-L2: There is moderate facet arthropathy. No spinal canal or neural foraminal stenosis is present. L2-L3: There is moderate facet arthropathy and thickening of the ligamentum flavum. There is no spinal canal or neural foraminal stenosis. L3-L4: There is mild diffuse circumferential disc bulging, severe facet arthropathy, and thickening of the ligamentum flavum. This is causing mild spinal canal stenosis and mild bilateral neural foraminal narrowing. L4-L5: There is disc dehydration, severe disc space narrowing, moderate diffuse circumferential disc bulging, thickening of the ligamentum flavum, and severe facet arthropathy. This is causing severe spinal canal stenosis, severe narrowing of the subarticular recesses, and moderate bilateral neural foraminal narrowing. L5-S1: There is minimal diffuse circumferential disc bulging and mild facet arthropathy. There is no spinal canal or left foraminal stenosis. Minimal right neural foraminal narrowing is present. Soft tissues: Extensive subcutaneous edema is present in the lower back. IMPRESSION: Severe spinal canal stenosis at L4-L5. See discussion above. Electronically signed by: Marquis Cabrera On 12/29/2020 14:13:01 PM
== END ==
LOC: M PLARAD 10:53
PROVIDERS: ATTEND Family Medicine
DX: M54.40 Lumbago with sciatica, unspecified side (principal)

== ENCOUNTER → 2021-03-16 | Outpatient (CLI) | payer OTHER ==
--- NOTE | 2021-03-17 | ECWPNPC ---
PATIENT NAME: TOYA WALLS : 1960 GENDER: FEMALE VISIT DATE: 03/16/2021 DISCHARGE DATE: 03/16/2144 VISIT LOCKED DATE TIME: PHYSICIAN: ADAN RIVERO PHYSICIAN PAGER NO: ACTIVE RESOURCE: ADAN RIVERO REASON FOR APPOINTMENT 1. SPINAL STENOSIS HISTORY OF PRESENT ILLNESS GENERAL: 60-YEAR-OLD FEMALE REFERRED BY PRIMARY CARE AT [facility] FOR PERSISTENT LOW BACK PAIN. PATIENT REPORTS 2-YEAR HISTORY OF LOW BACK PAIN. HISTORY OF RIGHT HIP REPLACEMENT IN SEPTEMBER 2020. PATIENT HAS SEEN ORTHOPEDIC SURGEON WHO IS RECOMMENDING TRIAL OF INJECTIONS AND IF NO IMPROVEMENT HE WOULD CONSIDER SURGERY. PATIENT IS CURRENTLY BEING TREATED FOR BRONCHITIS WITH STEROID MEDICATION. PATIENT WOULD LIKE TO ALSO HAVE COVID IMMUNIZATION SOON POSSIBLE. REVIEWED MRI OF THE LS SPINE WHICH IS SHOWING SEVERE SPINAL STENOSIS. PAIN IS LOCATED ACROSS LOW BACK AND RADIATES INTO RIGHT LEG INTERMITTENTLY WITH PAIN AND NUMBNESS. DENIES BOWEL INCONTINENCE. DENIES BLADDER INCONTINENCE. DENIES SADDLE PARESTHESIAS. PAIN IS AGGRAVATED BY STANDING OR HAVING BOWEL MOVEMENTS. - - -. FALL RISK SCREENING: SCREENING : NO FALLS REPORTED IN THE LAST YEAR. PAIN SCREENING: PATIENT HAS A COMPLAINT OF ACUTE OR CHRONIC PAIN :YES LOCATION OF PAIN:MID BACK, LOW BACK INTENSITY OF PAIN (SCALE OF 1 TO 10):5 WHAT DOES YOUR PAIN FEEL LIKE:BURNING, CONTINOUS, THROBBING DURATION:CONTINOUS, CONSTANT, ALL DAY, AWAKENS FROM SLEEP PAIN IS INCREASED BY:ACTIVITIES PAIN IS DECREASED BY:USE OF PAIN MEDICATIONS NURSING NOTE: - - -. PAIN CENTER INTAKE QUESTIONS: DO YOU HAVE A HISTORY OF MRSA? :NO DO YOU TAKE A BLOOD THINNERS? :NO DO YOU HAVE ANY BLEEDING DISORDERS? :NO ANY NEW NUMBNESS OR WEAKNESS IN YOUR LEGS OR ARMS? :YES PAIN GOES DOWN INTO BOTH LEGS ANY PACEMAKER,DEFIBRILLATOR, OR DORSAL COLUMN STIMULATOR? :NO DO YOU HAVE ANY RASHES OR OPEN SORES? :NO ARE YOU ALLERGIC TO IV DYE? :NO ARE YOU DIABETIC? :NO ANY NEW PROBLEMS WITH YOUR MEDICATIONS? :NO HAVE YOU RECEIVED A VACCINE IN THE PAST 30 DAYS? :NO DO YOU PLAN TO RECEIVE A VACCINE IN THE NEXT 21 DAYS? :NO DO YOU NEED ANY PRESCRIPTION? :NO DO YOU TAKE ANY IMMUNOSUPPRESSIVE MEDICATIONS? :NO IS THERE A CHANCE YOU COULD BE ? :NO ARE YOU BREAST FEEDING? :NO CURRENT MEDICATIONS TAKING NICOTINE 21 MG/24HR PATCH 24 HOUR 1 PATCH TO SKIN TRANSDERMAL ONCE A DAY TAKING IBUPROFEN 800 MG TABLET 1 TABLET WITH FOOD OR MILK NEEDED ORALLY TWICE DAILY NEEDED TAKING TYLENOL ARTHRITIS PAIN TAKING ACETAMINOPHEN-CODEINE #4 300-60 MG TABLET 1 TABLET NEEDED ORALLY EVERY 6 HRS; MDD=4 TAKING CYCLOBENZAPRINE HCL 10 MG TABLET 1 TABLET AT BEDTIME NEEDED ORALLY AT NIGHT TAKING ERYTHROMYCIN 5 MG/GM OINTMENT 1 APPLICATION INTO THE LOWER EYELID OF AFFECTED EYE OPHTHALMIC FOUR TIMES A DAY TAKING GABAPENTIN 600 MG TABLET 1 CAPSULE ORALLY THREE TIMES DAILY TAKING MELOXICAM 15 MG TABLET 1 TABLET ORALLY ONCE A DAY TAKING CYCLOBENZAPRINE HCL 5 MG TABLET 1 TABLET NEEDED FOR PAIN ORALLY THREE TIMES DAILY NEEDED TAKING DULOXETINE HCL 30 MG CAPSULE DELAYED RELEASE PARTICLES 1 CAPSULE ORALLY ONCE A DAY TAKING ALBUTEROL SULFATE 108 (90 BASE) MCG/ACT AEROSOL POWDER BREATH ACTIVATED 1 PUFF NEEDED INHALATION EVERY 4 HRS TAKING PREDNISONE 20 MG TABLET 1 TABLET ORALLY TWICE A DAY FOR 5 DAYS TAKING BENZONATATE 100 MG CAPSULE 1 CAPSULE NEEDED ORALLY THREE TIMES A DAY FOR 10 DAYS NOT-TAKING TYLENOL WITH CODEINE #4 , NOTES: NOT SURE OF DOSE NOT-TAKING DULOXETINE HCL 30 MG CAPSULE DELAYED RELEASE PARTICLES 1 CAPSULE ORALLY ONCE A DAY NOT-TAKING CYCLOBENZAPRINE HCL 5 MG TABLET 1 TABLET NEEDED ORALLY THREE TIMES DAILY NEEDED MEDICATION LIST REVIEWED AND RECONCILED WITH THE PATIENT PAST MEDICAL HISTORY HO OF TOM- KIDNEY INJURY IFG [facility] MYRISK GENETIC TEST NEG TC SCORE 14.1% ANXIETY ALLERGIES ASPIRIN: BELLY PAIN SURGICAL HISTORY 1989 TUBAL LIGATION 1990 COLONOSCOPY 07/2019 RIGHT SIDE OF HIP REPLACEMENT 09/2020 CYTS REMOVE FAMILY HISTORY FATHER: , STROKE MOTHER: ALIVE SIBLINGS: MATERNAL GRAND MOTHER: , BREAST CANCER 30'S MATERNAL AUNT: BREAST CANCER BILATERAL 2 BROTHER(S) , 3 SISTER(S) - HEALTHY. 3 SON(S) , 3 DAUGHTER(S) . SOCIAL HISTORY GENERAL: TOBACCO USE ARE YOU A:CURRENT SMOKER ARE YOU INTERESTED IN QUITTING?NOT READY TO QUIT COUNSELED THE PATIENT ON SMOKING EFFECTS, EDUCATION [id number]/28/2021 HOW MANY CIGARETTES A DAY DO YOU SMOKE?6-10 HOW SOON AFTER YOU WAKE UP DO YOU SMOKE YOUR FIRST CIGARETTE?WITHIN 5 MIN HOW OFTEN DO YOU SMOKE CIGARETTES?EVERY DAY PATIENT COUNSELED ON THE DANGERS OF TOBACCO USE AND URGED TO QUIT:03/16/2021 LATEX QUESTIONNAIRE LATEX ALLERGY : HAVE YOU EVER DEVELOPED ANY TYPE OF REACTION AFTER HANDLING LATEX PRODUCTS SUCH RUBBER GLOVES, CONDOMS, DIAPHRAGMS, BALLOONS, SOCKS, OR UNDERWEAR?NO LATEX ALLERGY : HAVE YOU EVER DEVELOPED ANY TYPE OF REACTION DURING OR AFTER DENTAL APPOINTMENT, VAGINAL/RECTAL EXAMINATION, SURGICAL PROCEDURE, OR ANY OTHER EXPOSURE?NO LATEX RISK : HAVE YOU EVER HAD ANY DIFFICULTY BREATHING OR HIVES AFTER EATING OR HANDLING ANY FRUITS, OR VEGETABLES; SUCH KIWI, BANANAS, STONE FRUITS, OR CHESTNUTSNO LATEX RISK : DO YOU HAVE A PREVIOUS PERSONAL HISTORY OF MORE THAN NINE SURGERIES, SPINA BIFIDA, OR REPEATED CATHERIZATIONS? NO LATEX RISK : ARE YOU FREQUENTLY EXPOSED TO LATEX PRODUCTS IN YOUR OCCUPATION?NO DATE ASKED : 03/16/2021 ALCOHOL USE: NO, NOT ANY MORE- USE TO DRINK FOR THE PAIN. LUNG CANCER SCREENING SMOKING STATUS:CURRENT SMOKER IS THE PATIENT BETWEEN THE AGE OF 57 AND 79?YES HAS THE PATIENT EVER BEEN DIAGNOSED WITH LUNG CANCER?NO PACK YEARS = NUMBER OF PACKS PER DAY SMOKED X NUMBER OF YEARS SMOKED:36 CREATE REFERRAL:GENERATE AND CREATE REFERRAL TO THE ONCOLOGY NURSE NAVIGATOR (SMP) LISTING USING THE LDCT SCAN PROCEDURE DISCLAIMER:PLEASE ADD DISCLAIMER FROM BROWSE SECTION OF THE NOTE BMI CARE GOAL FOLLOW-UP ABOVE NORMAL BMI FOLLOW-UPGIVING ENCOURAGEMENT TO EXERCISE ALCOHOL SCREENING DID YOU HAVE A DRINK CONTAINING ALCOHOL IN THE PAST YEAR?YES HOW OFTEN DID YOU HAVE SIX OR MORE DRINKS ON ONE OCCASION IN THE PAST YEAR?NEVER (0 POINTS) HOW MANY DRINKS DID YOU HAVE ON A TYPICAL DAY WHEN YOU WERE DRINKING IN THE PAST YEAR?1 OR 2 (0 POINTS) HOW OFTEN DID YOU HAVE A DRINK CONTAINING ALCOHOL IN THE PAST YEAR?MONTHLY OR LESS (1 POINT) POINTS1 INTERPRETATIONNEGATIVE RECREATIONAL DRUG USE DRUG USE?NO CAFFEINE CAFFEINE USE?YES HOW OFTEN AND HOW MUCH? 4 CUPS OF COFFEE DAILY SEXUAL HX HAD SEX IN THE LAST 12 MONTHS (VAGINAL, ORAL, OR ANAL)?NO LMP:MENOPAUSAL HAVE YOU EVER HAD AN STD?NO HIV / HEP-C SCREENING HIV TEST OFFERED TO PATIENT:YES DATE OFFERED:04/02/2019 TEST ACCEPTED:NO HEP-C TEST OFFERED TO PATIENT:YES DATE OFFERED:04/02/2019 REASON:PATIENT DECLINED TEST ACCEPTED:NO REASON:PATIENT DECLINED BROCHURE PROVIDED TO PATIENTYES MUSLIM [id number] NONE LANGUAGE LANGUAGES SPOKEN:[place] EDUCATION LEVEL OF EDUCATION:HIGH SCHOOL LEARNING BARRIERS / SPECIAL NEEDS CHANGE FROM LAST VISIT?NO BARRIERS TO LEARNING?NO HEARING IMPAIRED?NO VISION IMPAIRED?YES :CORRECTIVE LENSES COGNITIVELY IMPAIRED?YES : SOME TIMES READINESS TO LEARN?YES LEARNING PREFERENCES?NO LEARNING CAPABILITIES PRESENT?YES EMOTIONAL BARRIERS?YES COMMENTS ANXIETY SPECIAL DEVICES?NO CARDROOM DRAWING RUNNER NEEDED?NO DOMESTIC VIOLENCE STATUS: OCCUPATION: , UNEMPLOYED. DIET: REGULAR. EXERCISE: NO REGULAR EXERCISE- NOT CURRENTLY DUE TO ORTHOPAEDIC PAIN. MARITAL STATUS: .. OTHERS AT HOME: CHILD, FIANCEE, 3 GRANDCHILDREN. HOSPITALIZATION/MAJOR DIAGNOSTIC PROCEDURE CHILDBIRTH SURGICAL RELATED REVIEW OF SYSTEMS CONSTITUTIONAL: ANY RECENT FEVER NO . CHILLS NO . WEIGHT CHANGE OF UNKNOWN REASONS NO . GASTROENTEROLOGY: NEW UNEXPLAINABLE CHANGES IN BOWEL CONTROL NO . CONSTIPATION NO . GENITOURINARY: ANY NEW CHANGE IN BLADDER CONTROL? NO . NEUROLOGY: NEW ONSET DIZZINESS OR NEUROLOGICAL CHANGES NOT MENTIONED NO . NEW NUMBNESS OR PAIN PATTERNS NOT MENTIONED AND PERTINENT TO TODAY'S VISIT NO . CARDIOLOGY: NEW CHEST PRESSURE NO . PATIENT DENIES NO . RESPIRATORY: UNEXPLAINABLE COUGH NO . NEW SHORTNESS OF BREATH NO . VITAL SIGNS WT 236 LBS, HT 63 IN, BMI 41.80 INDEX, BP 141/90 MM HG, HR 88 /MIN, RR 18 /MIN, TEMP 96.8 F, OXYGEN SAT % 96, SAFE IN ENV? (Y/N) YEST.DEBBIE WARNER. EXAMINATION GENERAL EXAMINATION: GENERALALERT, APPEARS ANXIOUS, APPEARS UNCOMFORTABLE.. PSYCHAPPROPRIATE MOOD AND AFFECT . FACE:UNREMARKABLE. NECK:NO LYMPHADENOPATHY, SUPPLE. LUNGS:CLEAR TO AUSCULTATION BILATERALLY, NO WHEEZES, RHONCHI, RALES. HEART:NO MURMURS, REGULAR RATE AND RHYTHM. MUSCULOSKELETAL:SLIGHT WEAKNESS NOTED OVER RIGHT LEG.. LUMBAR:NONTENDER WITH PALPATION.. DIAGNOSTIC TESTS REVIEWED MRI L/S SPINE/2020. ASSESSMENTS LUMBAR SPINAL STENOSIS - M48.061 (PRIMARY) TREATMENT LUMBAR SPINAL STENOSIS START ACETAMINOPHEN-CODEINE TABLET, 300-30 MG, 1 TABLET NEEDED, ORALLY, Q8H PRN MDD3, 30 DAYS, 90 NOTES: PATIENT IS VERY UNCOMFORTABLE TODAY DESPITE HER CURRENT CHRONIC PAIN MEDICATIONS. I AM ENCOURAGING HER TO GET HER COVID 19 VACCINATION DUE TO HER APPARENT HIGH RISK. CURRENTLY SHE IS BEING TREATED FOR BRONCHITIS AND HAS A HISTORY OF COPD. I FEEL WE HAVE TO WAIT UNTIL A FEW WEEKS AFTER HER SECOND COVID-19 VACCINATION TO CONSIDER EPIDURAL STEROID INJECTION SUGGESTED BY ORTHOPEDIC SURGEON. TODAY I WILL HAVE HER SIGN A NARCOTIC AGREEMENT AND AND WILL PRESCRIBE TYLENOL NO. 3 UP TO 3 A DAY FOR SEVERE PAIN EPISODES. FOLLOW-UP WILL BE SCHEDULED AT PAIN CENTER IN 6 TO 8 WEEKS. PROCEDURE CODES FA211 ESTABILISHED PATIENT [facility] CHARGE DISPOSITION & COMMUNICATION FOLLOW UP 6-8WKS F/U (REASON: MED MGMNT/CONSIDER LESI) ELECTRONICALLY SIGNED BY JOHAN DHALIWAL ON 03/16/2021 AT 01:14 PM EDT DISCLAIMER : THIS IS A VISIT SUMMARY EXTRACTED FROM THE [employer] CHART. IT IS NOT A COPY OF THE [employer] PROGRESS NOTE. ISMAEL
== END ==
LOC: M PAIN 08:30
PROVIDERS: ATTEND Nurse Practitioner Family
DX: M48.061 Spinal stenosis, lumbar region without neurogenic claudication (principal); R73.01 Impaired fasting glucose; F41.9 Anxiety disorder, unspecified; F17.210 Nicotine dependence, cigarettes, uncomplicated; Z79.899 Other long term (current) drug therapy; Z88.6 Allergy status to analgesic agent

== ENCOUNTER 2021-04-05 14:51 | Outpatient (RCR) | payer OTHER | END 2021-04-19 | LOC: M PT 14:51 | PROVIDERS: ATTEND Family Medicine | DX: M48.062 Spinal stenosis, lumbar region with neurogenic claudication (principal) ==

== ENCOUNTER → 2021-05-11 | Outpatient (CLI) | payer OTHER | LOC: M PAIN 11:30 | PROVIDERS: ATTEND Anesthesiology | DX: M51.16 Intervertebral disc disorders with radiculopathy, lumbar region (principal); M48.062 Spinal stenosis, lumbar region with neurogenic claudication; G89.29 Other chronic pain; F17.210 Nicotine dependence, cigarettes, uncomplicated; Z86.59 Personal history of other mental and behavioral disorders; Z88.6 Allergy status to analgesic agent; E66.01 Morbid (severe) obesity due to excess calories; Z68.41 Body mass index [BMI] 40.0-44.9, adult; Z79.899 Other long term (current) drug therapy ==

== ENCOUNTER → 2021-05-19 | Outpatient (CLI) | payer OTHER | LOC: M LABSMTC 09:42 | PROVIDERS: ATTEND Anesthesiology | DX: Z01.812 Encounter for preprocedural laboratory examination (principal); Z20.822 Contact with and (suspected) exposure to COVID-19 ==

== ENCOUNTER → 2021-05-24 | Outpatient (CLI) | payer OTHER ==
[~2021-05-24] MED LIST changes: +ISOVUE-M 300 61% 15ML VIAL As Ordered ONE; +LIDOCAINE 1% SDV 30ML VIAL As Ordered ONE; +NORCO, ANEXSIA 5/325MG TABLET (HYDROcodone/ACETAMINOPHEN) As Ordered ONE; +diazePAM 5MG TABLET As Ordered ONE; +methylPREDNISolone SUSP 40MG/ML 1ML VIAL (DEPO MEDROL) As Ordered ONE
--- NOTE | 2021-05-24 13:44 | REP ---
INDICATION: LUMBAR EPIDURAL STEROID INJECTION. COMPARISON: None. TECHNIQUE: Two views. 23.0 seconds of fluoroscopy time is reported. FINDINGS: A sequence of 2 last image hold fluoroscopically obtained spot radiograph(s) of the lumbar spine document(s) needle position(s) and contrast injection associated with injection procedure. IMPRESSION: Procedural imaging. <Electronically signed by Trevon Jaime > 05/24/21 2416
== END ==
LOC: M PAIN 11:20
PROVIDERS: ATTEND Anesthesiology
DX: M51.16 Intervertebral disc disorders with radiculopathy, lumbar region (principal); F17.210 Nicotine dependence, cigarettes, uncomplicated; Z86.59 Personal history of other mental and behavioral disorders; Z88.6 Allergy status to analgesic agent; E66.01 Morbid (severe) obesity due to excess calories; Z68.41 Body mass index [BMI] 40.0-44.9, adult; Z79.899 Other long term (current) drug therapy
CPT/HCPCS: 62323; J1030; Q9967

== ENCOUNTER → 2021-07-21 | Outpatient (CLI) | payer OTHER ==
[~2021-07-21] MED LIST changes: -ISOVUE-M 300 61% 15ML VIAL As Ordered ONE; -LIDOCAINE 1% SDV 30ML VIAL As Ordered ONE; -NORCO, ANEXSIA 5/325MG TABLET (HYDROcodone/ACETAMINOPHEN) As Ordered ONE; -diazePAM 5MG TABLET As Ordered ONE; -methylPREDNISolone SUSP 40MG/ML 1ML VIAL (DEPO MEDROL) As Ordered ONE
== END ==
LOC: M PAIN 11:30
PROVIDERS: ATTEND Anesthesiology
DX: M51.16 Intervertebral disc disorders with radiculopathy, lumbar region (principal); G89.29 Other chronic pain; R73.01 Impaired fasting glucose; F17.210 Nicotine dependence, cigarettes, uncomplicated; Z86.59 Personal history of other mental and behavioral disorders; Z88.6 Allergy status to analgesic agent; E66.01 Morbid (severe) obesity due to excess calories; Z68.41 Body mass index [BMI] 40.0-44.9, adult; Z79.899 Other long term (current) drug therapy

== ENCOUNTER → 2021-08-09 | Outpatient (CLI) | payer OTHER | LOC: M PAIN 14:45 | PROVIDERS: ATTEND Anesthesiology | DX: M48.061 Spinal stenosis, lumbar region without neurogenic claudication (principal); M48.062 Spinal stenosis, lumbar region with neurogenic claudication; G89.29 Other chronic pain; F17.210 Nicotine dependence, cigarettes, uncomplicated; Z86.59 Personal history of other mental and behavioral disorders; Z88.6 Allergy status to analgesic agent; E66.01 Morbid (severe) obesity due to excess calories; Z68.41 Body mass index [BMI] 40.0-44.9, adult; Z79.899 Other long term (current) drug therapy ==

== ENCOUNTER → 2021-08-18 | Outpatient (CLI) | payer OTHER | LOC: M LABSMTC 11:47 | PROVIDERS: ATTEND Anesthesiology | DX: Z20.822 Contact with and (suspected) exposure to COVID-19 (principal) ==

== ENCOUNTER → 2021-08-23 | Outpatient (CLI) | payer OTHER ==
[~2021-08-23] MED LIST changes: +BUPIVACAINE HCL 0.25% 30ML VIAL As Ordered ONE; +ISOVUE-M 300 61% 15ML VIAL As Ordered ONE; +LIDOCAINE 1% SDV 30ML VIAL As Ordered ONE; +MIDAZOLAM INJ 2MG/2ML VIAL (J2250 PER 1MG) As Ordered ONE; +ONDANSETRON 4MG/2ML VIAL As Ordered ONE; +dexameTHASONE 10MG/1ML VIAL PRES.FREE (J1100 PER 1MG) As Ordered ONE; +diphenhydrAMINE 50MG/ML VIAL (J1200) As Ordered ONE; +fentaNYL 100 MCG/2 ML INJECTION (J3010) As Ordered ONE
--- NOTE | 2021-08-24 08:51 | REP ---
INDICATION: BILATERAL TRANSFORAMINAL EPIDURAL WITH IV SEDATION. COMPARISON: None. TECHNIQUE: Multiple C-arm views lumbar spine performed. FINDINGS: A needle is seen along the lumbar spine region. A small amount of contrast is injected. IMPRESSION: 82 seconds fluoroscopy time utilized. <Electronically signed by Edi Rose > 08/24/21 0838
== END ==
LOC: M PAIN 11:40
PROVIDERS: ATTEND Anesthesiology
DX: M51.16 Intervertebral disc disorders with radiculopathy, lumbar region (principal); F17.210 Nicotine dependence, cigarettes, uncomplicated; Z86.59 Personal history of other mental and behavioral disorders; Z88.6 Allergy status to analgesic agent; E66.01 Morbid (severe) obesity due to excess calories; Z68.41 Body mass index [BMI] 40.0-44.9, adult; Z79.899 Other long term (current) drug therapy
CPT/HCPCS: 64483; J1100; J1200; J2250; J2405; J3010; Q9967

== ENCOUNTER → 2021-09-12 | Outpatient (CLI) | payer OTHER ==
[~2021-09-12] MED LIST changes: -BUPIVACAINE HCL 0.25% 30ML VIAL As Ordered ONE; -ISOVUE-M 300 61% 15ML VIAL As Ordered ONE; -LIDOCAINE 1% SDV 30ML VIAL As Ordered ONE; -MIDAZOLAM INJ 2MG/2ML VIAL (J2250 PER 1MG) As Ordered ONE; -ONDANSETRON 4MG/2ML VIAL As Ordered ONE; -dexameTHASONE 10MG/1ML VIAL PRES.FREE (J1100 PER 1MG) As Ordered ONE; -diphenhydrAMINE 50MG/ML VIAL (J1200) As Ordered ONE; -fentaNYL 100 MCG/2 ML INJECTION (J3010) As Ordered ONE
== END ==
LOC: M LABSMTC 10:06
PROVIDERS: ATTEND Orthopaedic Surgery
DX: Z01.812 Encounter for preprocedural laboratory examination (principal); Z20.822 Contact with and (suspected) exposure to COVID-19; M48.062 Spinal stenosis, lumbar region with neurogenic claudication; M53.2X6 Spinal instabilities, lumbar region; M54.16 Radiculopathy, lumbar region

== ENCOUNTER 2021-09-30 18:27 | Emergency (ER) | payer OTHER ==
[~2021-09-30] VITALS: Ht 157.5 cm; Wt 105.0 kg
[2021-09-30 18:39] VITALS: BP 186/104
== END 2021-09-30 22:00 | disposition left against medical advice (07) ==
LOC: M ED 18:27
DX: Z53.21 Procedure and treatment not carried out due to patient leaving prior to being seen by health care provider (principal)

== ENCOUNTER → 2021-10-10 | Outpatient (REF) | payer OTHER ==
[2021-10-10 17:18] LABS: APPEARANCE, URINE HAZY (CLEAR); BACTERIA, URINE AUTO NEGATIVE (NEGATIVE); BILIRUBIN, URINE AUTO NEGATIVE (NEGATIVE); BLOOD, URINE BLOOD NEGATIVE (NEGATIVE); COLOR, URINE YELLOW (YELLOW); GLUCOSE, URINE (UA) AUTO NEGATIVE (NEGATIVE); KETONE, URINE AUTO TRACE mg/dL (NEGATIVE); LEUKOCYTE ESTERASE, URINE AUTO 1+ (NEGATIVE); MUCUS, URINE SMALL (NEGATIVE); NITRITE, URINE AUTO NEGATIVE (NEGATIVE); PROTEIN, URINE AUTO NEGATIVE (NEGATIVE); RBC, URINE AUTO 2 /HPF (0-3); SPECIFIC GRAVITY URINE AUTO 1.019 (1.002-1.035); SQUAMOUS EPITHELIAL CELL UR AU 8 /HPF (0-6); UROBILINOGEN, URINE AUTO 0.2 mg/dL (0.0-2.0); WBC, URINE AUTO 2 /HPF (0-3)
== END ==
LOC: M SFHCPLAZ 16:37
PROVIDERS: ATTEND Family Medicine
DX: R30.9 Painful micturition, unspecified (principal)

== ENCOUNTER → 2022-02-13 | Outpatient (CLI) | payer OTHER ==
[~2022-02-13] MED LIST changes: -ACET1TAB16 PO; +ACET300T48 PO; +ISOVUE-370 76% 100ML VIAL As Ordered ONE
== END ==
LOC: M RAD 17:08
PROVIDERS: ATTEND Family Medicine
DX: R42 Dizziness and giddiness (principal)
CPT/HCPCS: 70498; Q9967

== ENCOUNTER → 2022-02-16 | Outpatient (CLI) | payer OTHER ==
[~2022-02-16] MED LIST changes: -ISOVUE-370 76% 100ML VIAL As Ordered ONE
== END ==
LOC: M PLAIMG 13:20
PROVIDERS: ATTEND Family Medicine
DX: M25.572 Pain in left ankle and joints of left foot (principal)

== ENCOUNTER 2022-03-15 15:15 | Outpatient (RCR) | payer OTHER | END 2022-03-19 | LOC: M PT 15:15 | PROVIDERS: ATTEND Family Medicine | DX: M43.26 Fusion of spine, lumbar region (principal) ==

== ENCOUNTER → 2022-04-06 | Outpatient (CLI) | payer OTHER ==
[~2022-04-06] MED LIST changes: +PROHANCE 279.3MG/ML 15ML VIAL As Ordered ONE; +PROHANCE 279.3MG/ML 5ML VIAL As Ordered ONE
== END ==
LOC: M RAD 15:38
PROVIDERS: ATTEND Orthopaedic Surgery
DX: M51.36 Other intervertebral disc degeneration, lumbar region (principal); M51.26 Other intervertebral disc displacement, lumbar region; R39.198 Other difficulties with micturition; Z98.890 Other specified postprocedural states
CPT/HCPCS: 72158; A9576

== ENCOUNTER 2022-04-17 14:15 | Outpatient (RCR) | payer OTHER ==
[~2022-04-17 14:15] MED LIST changes: -PROHANCE 279.3MG/ML 15ML VIAL As Ordered ONE; -PROHANCE 279.3MG/ML 5ML VIAL As Ordered ONE
== END 2022-04-19 ==
LOC: M PT 14:15
PROVIDERS: ATTEND Family Medicine
DX: M43.26 Fusion of spine, lumbar region (principal)

== ENCOUNTER 2022-05-03 14:01 | Outpatient (RCR) | payer OTHER | END 2022-05-19 | LOC: M PT 14:01 | PROVIDERS: ATTEND Family Medicine | DX: M43.26 Fusion of spine, lumbar region (principal) ==

== ENCOUNTER → 2022-10-27 | Outpatient (CLI) | payer OTHER ==
[2022-10-27 17:12] LABS: HEMATOCRIT 44.6 % (36.0-47.0); HEMOGLOBIN 15.1 g/dl (12.0-15.5); MEAN CORPUSCULAR HGB CONC 33.9 g/dl (32.0-36.5); MEAN CORPUSCULAR VOLUME 103.2 fl (80.0-96.0); PLATELET COUNT, AUTOMATED 281 10^3/uL (150-450); RED BLOOD COUNT 4.32 10^6/uL (4.00-5.40); WHITE BLOOD COUNT 10.5 10^3/uL (4.0-10.0)
[2022-10-27 17:39] LABS: ALBUMIN 4.2 G/DL (3.2-5.2); ALKALINE PHOSPHATASE 91 U/L (46-116); ALT/SGPT 19 U/L (7.0-40); AST/SGOT 14 U/L (<34); BILIRUBIN,TOTAL 0.4 MG/DL (0.3-1.2); BLOOD UREA NITROGEN 18 MG/DL (9-23); CALCIUM LEVEL 9.6 MG/DL (8.5-10.1); CARBON DIOXIDE LEVEL 24 MMOL/L (20-31); CHLORIDE LEVEL 106 MMOL/L (98-107); CHOLESTEROL LEVEL 239 MG/DL (<200); CHOLESTEROL RISK RATIO 5.37 (<5); GLOMERULAR FILTRATION RATE > 60.0 (>51); GLUCOSE, FASTING 94 MG/DL (60-100); HDL CHOLESTEROL 44.5 MG/DL (>40); LDL CHOLESTEROL 152.5 MG/DL (<100); NON-HDL-C 194.5 MG/DL; POTASSIUM SERUM 4.4 MMOL/L (3.5-5.1); SODIUM LEVEL 138 MMOL/L (136-145); TOTAL PROTEIN 7.1 G/DL (5.7-8.2); TRIGLYCERIDES LEVEL 210 MG/DL (<150)
[2022-10-27 17:53] LABS: HEMOGLOBIN A1c 5.5 % (4.0-6.0)
[2022-10-27 18:03] LABS: HIV 1&2 SCREEN CENTAUR NEGATIVE (NEGATIVE)
[2022-10-27 18:11] LABS: HEPATITIS C VIRUS ABY INDEX < 0.0 INDEX (<0.8)
== END ==
LOC: M PLALAB 14:38
PROVIDERS: ATTEND Student in an Organized Health Care Education/Training Program
DX: M25.552 Pain in left hip (principal)

== ENCOUNTER → 2022-11-06 | Outpatient (CLI) | payer OTHER | LOC: M RAD 12:53 | PROVIDERS: ATTEND Student in an Organized Health Care Education/Training Program | DX: Z12.2 Encounter for screening for malignant neoplasm of respiratory organs (principal); F17.200 Nicotine dependence, unspecified, uncomplicated ==

== ENCOUNTER → 2022-11-16 | Outpatient (CLI) | payer OTHER | LOC: M SLEEP HO 09:41 | PROVIDERS: ATTEND Internal Medicine Pulmonary Disease | DX: G47.30 Sleep apnea, unspecified (principal) ==

== ENCOUNTER → 2022-12-22 | Outpatient (CLI) | payer OTHER | LOC: M WHC 14:27 | PROVIDERS: ATTEND Student in an Organized Health Care Education/Training Program | DX: N64.4 Mastodynia (principal); Z53.9 Procedure and treatment not carried out, unspecified reason ==

== ENCOUNTER → 2022-12-22 | Outpatient (CLI) | payer OTHER | LOC: M WHC 11:13 | PROVIDERS: ATTEND Student in an Organized Health Care Education/Training Program | DX: Z53.9 Procedure and treatment not carried out, unspecified reason (principal) ==

== ENCOUNTER → 2022-12-29 | Outpatient (CLI) | payer OTHER | LOC: M PAIN 08:00 | PROVIDERS: ATTEND Nurse Practitioner Family | DX: M96.1 Postlaminectomy syndrome, not elsewhere classified (principal); G89.29 Other chronic pain; J44.9 Chronic obstructive pulmonary disease, unspecified; G47.33 Obstructive sleep apnea (adult) (pediatric); F17.210 Nicotine dependence, cigarettes, uncomplicated; Z86.59 Personal history of other mental and behavioral disorders; Z88.6 Allergy status to analgesic agent; E66.01 Morbid (severe) obesity due to excess calories; Z68.41 Body mass index [BMI] 40.0-44.9, adult; Z79.899 Other long term (current) drug therapy ==

== ENCOUNTER → 2023-01-01 | Outpatient (CLI) | payer OTHER | LOC: M PAIN 11:15 | PROVIDERS: ATTEND Nurse Practitioner Family | DX: M96.1 Postlaminectomy syndrome, not elsewhere classified (principal); M51.16 Intervertebral disc disorders with radiculopathy, lumbar region; G89.29 Other chronic pain; J44.9 Chronic obstructive pulmonary disease, unspecified; G47.33 Obstructive sleep apnea (adult) (pediatric); F17.210 Nicotine dependence, cigarettes, uncomplicated; Z86.59 Personal history of other mental and behavioral disorders; Z88.6 Allergy status to analgesic agent; E66.01 Morbid (severe) obesity due to excess calories; Z68.41 Body mass index [BMI] 40.0-44.9, adult; Z79.899 Other long term (current) drug therapy ==

== ENCOUNTER → 2023-01-17 | Outpatient (CLI) | payer OTHER | LOC: M WHC 10:02 | PROVIDERS: ATTEND Student in an Organized Health Care Education/Training Program | DX: Z12.31 Encounter for screening mammogram for malignant neoplasm of breast (principal); N64.4 Mastodynia ==

== ENCOUNTER → 2023-01-26 | Outpatient (CLI) | payer OTHER ==
[~2023-01-26] MED LIST changes: +ISOVUE-300 61% 100ML VIAL As Ordered ONE; +LIDOCAINE 1% MDV 20ML VIAL As Ordered ONE; +TRIAMCINOLONE ACETONIDE SUSP 40MG/ML 1ML VIAL As Ordered ONE
== END ==
LOC: M RAD 15:44
PROVIDERS: ATTEND Orthopaedic Surgery
DX: M16.12 Unilateral primary osteoarthritis, left hip (principal)
CPT/HCPCS: 20610; 77002; J3301; Q9967

== ENCOUNTER → 2023-05-30 | Outpatient (REF) | payer OTHER ==
[~2023-05-30] MED LIST changes: -GABA-283 PO; +GABA-284 PO; -ISOVUE-300 61% 100ML VIAL As Ordered ONE; -LIDOCAINE 1% MDV 20ML VIAL As Ordered ONE; -TRIAMCINOLONE ACETONIDE SUSP 40MG/ML 1ML VIAL As Ordered ONE
== END ==
LOC: M SFHCPLAZ 11:39
PROVIDERS: ATTEND Student in an Organized Health Care Education/Training Program
DX: N81.9 Female genital prolapse, unspecified (principal); Z53.9 Procedure and treatment not carried out, unspecified reason

== ENCOUNTER → 2023-07-27 | Outpatient (CLI) | payer OTHER ==
[~2023-07-27] MED LIST changes: +ISOVUE-300 61% 100ML VIAL As Ordered ONE; +LIDOCAINE 1% MDV 20ML VIAL As Ordered ONE; +TRIAMCINOLONE ACETONIDE SUSP 40MG/ML 1ML VIAL As Ordered ONE
== END ==
LOC: M RAD 12:58
PROVIDERS: ATTEND Orthopaedic Surgery
DX: M16.12 Unilateral primary osteoarthritis, left hip (principal)
CPT/HCPCS: 20610; 77002; J3301; Q9967

== ENCOUNTER → 2023-08-21 | Outpatient (CLI) | payer OTHER ==
[~2023-08-21] MED LIST changes: -ISOVUE-300 61% 100ML VIAL As Ordered ONE; -LIDOCAINE 1% MDV 20ML VIAL As Ordered ONE; -TRIAMCINOLONE ACETONIDE SUSP 40MG/ML 1ML VIAL As Ordered ONE
== END ==
LOC: M RAD 08:52
PROVIDERS: ATTEND Orthopaedic Surgery
DX: M16.12 Unilateral primary osteoarthritis, left hip (principal)

== ENCOUNTER → 2023-09-14 | Outpatient (CLI) | payer OTHER ==
[2023-09-14 12:01] LABS: HEMATOCRIT 41.6 % (36.0-47.0); HEMOGLOBIN 14.4 g/dl (12.0-15.5); MEAN CORPUSCULAR HGB CONC 34.6 g/dl (32.0-36.5); PLATELET COUNT, AUTOMATED 292 10^3/uL (150-450); RED BLOOD COUNT 4.12 10^6/uL (4.00-5.40); WHITE BLOOD COUNT 10.1 10^3/uL (4.0-10.0)
[2023-09-14 12:34] LABS: ALBUMIN 4.1 G/DL (3.2-5.2); ALKALINE PHOSPHATASE 94 U/L (46-116); ALT/SGPT 18 U/L (7.0-40); AST/SGOT 13 U/L (<34); BILIRUBIN,TOTAL 0.5 MG/DL (0.3-1.2); BLOOD UREA NITROGEN 16 MG/DL (9-23); CALCIUM LEVEL 9.6 MG/DL (8.3-10.6); CARBON DIOXIDE LEVEL 26 MMOL/L (20-31); CHLORIDE LEVEL 106 MMOL/L (98-107); CREATININE FOR GFR 0.95 MG/DL (0.55-1.30); GLOMERULAR FILTRATION RATE > 60.0 (>45); GLUCOSE, FASTING 107 MG/DL (74-106); POTASSIUM SERUM 4.9 MMOL/L (3.5-5.1); SODIUM LEVEL 138 MMOL/L (136-145); TOTAL PROTEIN 6.7 G/DL (5.7-8.2)
== END ==
LOC: M LAB 11:30
PROVIDERS: ATTEND Student in an Organized Health Care Education/Training Program
DX: N81.9 Female genital prolapse, unspecified (principal)

== ENCOUNTER 2023-10-18 10:27 | Day surgery (SDC) | payer OTHER ==
[~2023-10-18] VITALS: Ht 157.5 cm; Wt 88.0 kg
[~2023-10-18 10:27] MED LIST changes: +ATOR1TAB21 PO; +IBUP1TAB7 PO; +MILKSUS3 PO; +PANT40TA29 PO; +REFR0.5D8 OU
[2023-10-18] MEDS: NS 1,000 ML IV ONE (10:47)
[2023-10-18 12:06] VITALS: TEMP 96.9
[2023-10-18 12:27] VITALS: BP 118/88; O2SAT 96
== END 2023-10-18 12:40 | disposition home or self-care (01) ==
LOC: M OPP 10:27
PROVIDERS: ATTEND Surgery
DX: Z12.11 Encounter for screening for malignant neoplasm of colon (principal); D12.7 Benign neoplasm of rectosigmoid junction; D12.4 Benign neoplasm of descending colon; K57.30 Diverticulosis of large intestine without perforation or abscess without bleeding; K21.9 Gastro-esophageal reflux disease without esophagitis; Z86.010 Personal history of colon polyps; J44.9 Chronic obstructive pulmonary disease, unspecified; E78.00 Pure hypercholesterolemia, unspecified; Z79.899 Other long term (current) drug therapy; F17.210 Nicotine dependence, cigarettes, uncomplicated; Z88.6 Allergy status to analgesic agent; Z91.013 Allergy to seafood

== ENCOUNTER → 2023-11-14 | Outpatient (CLI) | payer OTHER ==
[2023-11-14 13:48] LABS: HEMATOCRIT 42.5 % (36.0-47.0); HEMOGLOBIN 14.3 g/dl (12.0-15.5); MEAN CORPUSCULAR HEMOGLOBIN 34.4 pg (27.0-33.0); MEAN CORPUSCULAR HGB CONC 33.6 g/dl (32.0-36.5); MEAN CORPUSCULAR VOLUME 102.2 fl (80.0-96.0); PLATELET COUNT, AUTOMATED 262 10^3/uL (150-450); RED BLOOD COUNT 4.16 10^6/uL (4.00-5.40); WHITE BLOOD COUNT 11.3 10^3/uL (4.0-10.0)
[2023-11-14 13:56] LABS: INR 0.99; PROTHROMBIN TIME 12.8 SECONDS (12.5-14.5)
[2023-11-14 14:00] LABS: ERYTHROCYTE SEDIMENTATION RATE 22 mm/hr (0-30)
[2023-11-14 14:21] LABS: ALBUMIN 4.1 G/DL (3.2-5.2); ALKALINE PHOSPHATASE 88 U/L (46-116); ALT/SGPT 20 U/L (7.0-40); AST/SGOT 11 U/L (<34); BILIRUBIN,TOTAL 0.4 MG/DL (0.3-1.2); BLOOD UREA NITROGEN 17 MG/DL (9-23); CALCIUM LEVEL 9.5 MG/DL (8.3-10.6); CARBON DIOXIDE LEVEL 25 MMOL/L (20-31); CHLORIDE LEVEL 110 MMOL/L (98-107); CREATININE FOR GFR 0.82 MG/DL (0.55-1.30); GLOMERULAR FILTRATION RATE > 60.0 (>45); GLUCOSE, FASTING 72 MG/DL (74-106); POTASSIUM SERUM 4.3 MMOL/L (3.5-5.1); SODIUM LEVEL 142 MMOL/L (136-145); TOTAL PROTEIN 6.5 G/DL (5.7-8.2)
== END ==
LOC: M PLAIMG 09:36
PROVIDERS: ATTEND Student in an Organized Health Care Education/Training Program
DX: Z01.818 Encounter for other preprocedural examination (principal)

== ENCOUNTER → 2023-11-14 | Outpatient (REF) | payer OTHER | LOC: M SFHCPLAZ 08:37 | PROVIDERS: ATTEND Family Medicine | DX: Z01.818 Encounter for other preprocedural examination (principal) ==

== ENCOUNTER → 2024-01-18 | Outpatient (CLI) | payer OTHER | LOC: M RAD 15:36 | PROVIDERS: ATTEND Student in an Organized Health Care Education/Training Program | DX: Z12.2 Encounter for screening for malignant neoplasm of respiratory organs (principal); F17.210 Nicotine dependence, cigarettes, uncomplicated ==

== ENCOUNTER 2024-03-19 11:26 | Emergency (ER) | payer OTHER ==
[~2024-03-19] VITALS: Ht 157.5 cm; Wt 93.5 kg
[2024-03-19 15:00] VITALS: BP 122/70; TEMP 98.3; O2SAT 98
== END 2024-03-19 15:03 | disposition home or self-care (01) ==
LOC: M ED 11:26
DX: N81.4 Uterovaginal prolapse, unspecified (principal); F17.200 Nicotine dependence, unspecified, uncomplicated; J44.9 Chronic obstructive pulmonary disease, unspecified; F41.9 Anxiety disorder, unspecified; Z88.6 Allergy status to analgesic agent; Z91.013 Allergy to seafood; Z79.02 Long term (current) use of antithrombotics/antiplatelets; Z79.1 Long term (current) use of non-steroidal anti-inflammatories (NSAID); Z79.899 Other long term (current) drug therapy; Z96.643 Presence of artificial hip joint, bilateral